=== PATIENT | male | born 1960 | race Hispanic/Latino ===

== ENCOUNTER 2020-05-09 19:58 | Inpatient (IN) | payer SELFPAY ==
[2020-05-09] MEDS ORDERED: Promethazine HCl 25 MG/ML VIAL IM PRN (21:31)
[2020-05-09] MEDS ORDERED: Mag-Al 1200 mg/1200 mg/30 ML UDCUP PO PRN (21:31)
[2020-05-09] MEDS ORDERED: Promethazine 25 MG TAB PO PRN (21:31)
[2020-05-09] MEDS ORDERED: Docusate 100 MG CAP PO PRN (21:31)
[2020-05-09] MEDS ORDERED: Labetalol HCl 100 MG/20 ML VIAL SLOW IVP PRN (21:31)
[2020-05-09] MEDS ORDERED: niCARdipine 20MG In NaCl 20 MG/200 ML BAG ONE (21:38)
[2020-05-09] MEDS ORDERED: Dextrose 5% in Water 1,000 ML IV PRN (23:30)
[2020-05-09] MEDS ORDERED: Dextrose 50% Abboject 50 ML SYRINGE SLOW IVP PRN (23:30)
--- NOTE | 2020-05-09 23:46 | PDOC.HHP ---
Hospitalist HPI - History of Present Illness Headache History of Present Illness: Patient is a 60 year old male with PMH DM, HTN, oropharyngeal cancer who presents to ED as transfer from [place] for SAH. Patient reports he developed a headache beginning 9 days ago, getting worse 5 days ago, no history of anything like this before. He had a CT scan for this yesterday and was normal, however went to ED again and now had a CT scan w/ angio suggesting basilar artery SAH w/ vasospasm. Patient given zofran, morphine hydralazine and transferred here for further workup. Patient reports to me good control of HTN and DM after getting it together 4 months ago. He checks BP 3 times a day and is suprised that it is this high. He has DM on PO medication. He has a history of ENT cancer and has history of chronic facial droop and pupil defect after having a surgery, neither of which are changed in anyway. he denies focal weakness, numbness, blurred vision, or other neurologic changes. Hospitalist ROS - Review of Systems Constitutional: reports: other (headache). denies: fever, chills, sweats, weakness, malaise Eyes: denies: pain, vision change, conjunctivae inflammation, eyelid inflammation, redness, other ENT: denies: ear pain, ear discharge, nose pain, nose discharge, nose congestion, mouth pain, mouth swelling, throat pain, throat swelling, other Respiratory: denies: cough, dry, shortness of breath, hemoptysis, SOB with excertion, pleuritic pain, sputum, wheezing, other Cardiovascular: denies: chest pain, palpitations, orthopnea, paroxysmal noc. dyspnea, edema, light headedness, other Gastrointestinal: denies: nausea, vomiting, abdominal pain, diarrhea, constipation, melena, hematochezia, other Genitourinary: denies: dysuria, frequency, incontinence, hematuria, retention, other Musculoskeletal: reports: neck pain. denies: shoulder pain, arm pain, back pain, hand pain, leg pain, foot pain, other Skin: denies: rash, lesions, paul, bruising, other Neurological: reports: other (chronic facial droop, pupil defect unchanged). denies: weakness, numbness, incoordination, change in speech, confusion, seizures All other systems reviewed; all pertinent +/- noted in HPI/Subj - Medication Medications: lisinopril tablet : Strength - 10 mg : ORAL Patient Dose: 20-12.5 mg Oral once a day. aspirin oral tablet : Strength - 81 mg : ORAL Patient Dose: 81 mg Oral once a day. metFORMIN tablet : Strength - 500 mg : ORAL Patient Dose: 500 mg Oral 2 times a day. Hospitalist History - Past Medical History Other Medical History: DM, HTN, oropharyngeal cancer - Past Surgical History Other Surgical History: tongue surgery due to cancer. radiation to throat and face 2013. - Family History Family History: reports: no pertinent history - Social History Smoking Status: Never smoker Alcohol: reports: Heavy (less than 5 drinks per day) Drugs: reports: none - Exam General Appearance: NAD, awake alert Eye: PERRL, anicteric sclera ENT: normocephalic atraumatic, no oropharyngeal lesions, moist mucosa ENT - other findings: chronic facial droop, pupic defect L side Neck: supple, symmetric, no JVD, no thyromegaly, no lymphadenopathy, no carotid bruit Heart: RRR, no murmur, no gallops, no rubs, normal peripheral pulses Respiratory: CTAB, no wheezes, no rales, no ronchi, normal chest expansion, no tachypnea, normal percussion Gastrointestinal: soft, non-tender, non-distended, normal bowel sounds, no palpable masses, no hepatomegaly, no splenomegaly, no bruit Extremities: no cyanosis, no clubbing, no edema Skin: normal turgor, no lesions, no rashes Neurological: cranial nerve grossly intact, normal sensation to touch, no weakness, no focal deficits, no new deficit Musculoskeletal: normal tone, normal strength, no muscle wasting Psychiatric: normal affect, normal behavior, A&O x 3 Hospitalist Results - Labs Additional comment: VITAL SIGNS Deborah May 09, 2020 20:07 KARIN Gramajo Melanie BP: 168/92 Pulse: 74 Resp: 13 Temp: 97.9 (Oral) Pain: 7 O2 sat: 99 on (Room Air) Time: 05/09/2020 20:07. labs,imaing reports from other hospitalization today reviewed Hospitalist H&P A/P - Plan Plan: Patient is a 60 year old male with PMH DM, HTN, oropharyngeal cancer who presents to ED as transfer from [place] for SAH. # basilar artery subarachnoid hemorrhage with vasospasm # headache # HTN headache x 9 days, worsening, CT scan w/ angio suggesting SAH w/ vasospasm in basilar artery, Patient given zofran, morphine hydralazine and transferred here for further workup. no change in neurologic status - admit to CCU - appreciate neurosurgery evaluation - continue HTN medications as ordered by vamsi OR # DM - SSI ordered # history of ENT cancer # chronic facial droop and pupil defect after surgery - no changes in neurologic status from baseline - recommend outpatient cancer surveillance 42 minutes critical care time
[2020-05-10] MEDS ORDERED: Dexamethasone 4 MG TAB ONE ×2 (00:08→04:33)
[2020-05-10] MEDS ORDERED: Insulin Regular 300 UNITS/3 ML VIAL ONE (00:17)
[2020-05-10] MEDS: HumaLOG 300 UNITS/3 ML VIAL SC PRN ×4 (00:27→21:33)
[2020-05-10] MEDS: niMODipine 30 MG CAP PO SCH ×6 (00:29→21:32)
[2020-05-10] MEDS: Dexamethasone 4 MG TAB PO SCH ×2 (00:29→05:07)
[2020-05-10] MEDS: Sodium Chloride 0.9% 1,000 ML IV SCH ×2 (00:29→13:50)
[2020-05-10] MEDS ORDERED: Promethazine 25 MG TAB ONE (00:53)
[2020-05-10] MEDS ORDERED: niCARdipine 25 MG in Sodium Chloride 0.9% 250 ML 240 ML IVPB SCH (01:00)
[2020-05-10 05:52] LABS: SARS-CoV-2 PCR by NAA Not Detected (NotDetected)
[2020-05-10 07:01] LABS: #Lymphocytes 0.8 thou/uL (1.20-3.40); #Monocytes 0.1 thou/uL (0.11-0.59); #Neutrophils 7.3 thou/uL (1.40-6.50); %Lymphocytes 9.4 % (21.0-51.0); %Monocytes 1.5 % (0.0-10.0); Hemoglobin 15.8 g/dL (14.0-18.0); Mean Corpuscular HGB CONC 31.8 g/dL (32.0-36.0); Mean Corpuscular Hemoglobin 30.1 pg (27.0-31.0); Mean Corpuscular Volume 94.5 fL (78.0-98.0); Mean Platelet Volume 7.2 fL (7.4-10.4); Platelet Count 427 thou/uL (130-400); RBC Distribution Width 11.5 % (11.5-14.5); Red Blood Cell (RBC) Count 5.26 mill/uL (4.70-6.10); White Blood Cell (WBC) Count 8.2 thou/uL (4.8-10.8)
[2020-05-10 07:16] LABS: Anion Gap 16 mmol/L (10-20); BUN (Urea Nitrogen) 13 mg/dL (8.4-25.7); Calc. Creatinine Clearance 126 mL/min (70-130); Calcium 8.8 mg/dL (7.8-10.44); Carbon Dioxide 21 mmol/L (23-31); Chloride 100 mmol/L (98-107); Glucose 208 mg/dL (80-115); Potassium 4.3 mmol/L (3.5-5.1); Sodium 133 mmol/L (136-145)
--- NOTE | 2020-05-10 07:31 | PRG ---
DATE OF SERVICE: 05/10/2020 I personally interviewed and examined the patient, agree with documentation of Richard Warren PA-C, dated 05/09/2020. Briefly, Elieser Harris is a 60-year-old gentleman with a family history of aneurysmal subarachnoid hemorrhage, who got the first headache of his life about 9 days ago. He was managing his garden at that time and trimming some of the leaves of lettuce when he had acute onset headache. He has never experience headaches, so he does not know if this is a terrible one or just par for the course. For that reason, he did not seek medical attention for few days, but eventually was seen in the emergency department and told the CT scan of the brain was negative and he was sent home with some pain medication. Continued headache brought back and at the [facility] Emergency Department, he underwent a CT angiogram that showed some clot around the tip of the basilar artery and some vasospasm in the superior cerebellar arteries on both sides. He was transferred for further care. He has been in our ER in a holding bed since his transfer overnight. This morning, he continues to have headache, but he had no other neurological complaints. He tells me that his slurred speech and facial weakness are from a cancer surgery on his tongue and mouth that lower branch of the facial nerve was injured during that removal of tumor. He reports no other new neurological deficits. There are no fevers recorded. Blood pressures are in the 130s as I see him. His pulse is in the 50s. He is awake and alert. He has lower facial weakness on the left side and buccal and mandibular divisions of the facial nerve. There are no other cranial neuropathies. There is no lateralizing motor or sensory deficit. There is no pronator drift. There is no neglect. Alternating rapid motions are performed rapidly and smoothly on both sides of the body. CT angiogram of the brain shows the aforementioned abnormality. What it does not show is any obvious aneurysm, dissection, or AVM. The vasospasm maybe obscuring view of a small aneurysm. Two CT angiograms have failed to reveal obvious source of the blood, but the effect of the blood is the vasospasm. My plan is to move Mr. Harris to the ICU, start 1.5 normal saline and watch him closely. If his vasospasm remains asymptomatic and we get through the next few days without any neurological decline, he maybe ready for discharge at some point next week. He is going to need a followup angiogram of some sort in the future once the vasospasm goes away to determine if there is a risk for future subarachnoid hemorrhage. He would be a patient who would benefit from treatment if we find an aneurysm given his family and personal history. I have ordered labs this morning. I will make changes to the IV fluids. Job ID: [id number]
--- NOTE | 2020-05-10 08:00 | CT ---
CT OF THE BRAIN WITH AND WITHOUT IV CONTRAST: INDICATION: History of subarachnoid hemorrhage surrounding the basilar artery. COMPARISON: Prior CTA of the head and neck dated 05/09/[address] of the brain dated 05/08/2020 and 09/21/2017. FINDINGS: The collection of subarachnoid hemorrhage surrounding the basilar artery within the prepontine cister n appears less prominent than on the comparison noncontrast CT of the brain dated 05/08/2020, likely r elated to interval dispersal of the subarachnoid hemorrhage. No hemodynamically significant stenosis , occlusion, or aneurysmal formation is grossly evident. The small area of focal narrowing involving the more proximal basilar artery near the level of the subarachnoid hemorrhage appears slightly less prominent than on the prior examination, likely related to some resolution of a focal vasospasm. Th e intracranial vertebral arteries and ICAs remain patent. The MCAs and bilateral ACAs remain patent. The posterior communicating arteries are not well detailed but appear patent. The radiology director bilaterally appear patent. No definite acute infarct or hydrocephalus is present. No midline shift is noted. No definite area of abnormal enhancement is demonstrated. The mastoid air cells and paranasal sinuses are clear. The skull is intact. IMPRESSION: Some interval disbursal of the subarachnoid hemorrhage seen within the prepontine cistern adjacent to the more proximal basilar artery. A focal area of suspected vasospasm has somewhat improved from th e prior examination. There is less accentuated luminal caliber narrowing involving the more proximal basilar artery near the level of the subarachnoid hemorrhage. No evidence of aneurysmal dilatation or focal dissection is grossly evident. POS: ELISE
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
[2020-05-10] MEDS ORDERED: Pantoprazole 40 MG VIAL ONE (09:33)
[2020-05-10] MEDS: Pantoprazole 40 MG VIAL IVP SCH ×2 (09:35→21:32)
[2020-05-10] MEDS ORDERED: FLU VACC QS2020-21(6MOS UP)/PF 60 MCG/0.5 ML SYRINGE IM ONE (12:15)
[2020-05-10] MEDS ORDERED: Iopamidol-370 76% 500 ML 1 ML ONE (14:27)
[2020-05-10] MEDS ORDERED: HumaLOG 300 UNITS/3 ML VIAL SC PRN (16:39)
--- NOTE | 2020-05-10 16:42 | PDOC.HOSPP ---
- Subjective Encounter Date: 05/10/20 Encounter Time: 11:35 Subjective: headache has resolved now no c/o specific weakness, feels better ate his breakfast, no nausea or vomiting - Objective Vital Signs & Weight: Vital Signs (12 hours) Temp Pulse Resp BP Pulse Ox 05/10/20 10:00 98.5 F 60 17 128/67 99 05/10/20 09:00 98.7 F 62 19 121/71 100 05/10/20 08:00 98.1 F 83 19 160/81 H 97 05/10/20 06:02 57 L 16 137/72 98 05/10/20 05:31 56 L 16 132/67 98 Weight Weight 252 lb 6.868 oz Result Diagrams: 05/10/20 06:46 05/10/20 06:46 Additional Labs: Accuchecks 05/10/20 05/10/20 05/09/20 11:45 05:34 23:53 POC Glucose 202 H 238 H 291 H Hospitalist ROS - Medication Medications: Active Medications Generic Name Dose Route Start Last Admin Trade Name Bebetoq PRN Reason Stop Dose Admin Sodium Chloride 1,000 mls @ 70 mls/hr 05/09/20 21:45 05/10/20 13:50 Normal Saline 0.9% IV 1,000 mls .[id number] NAVARRO Administration Insulin Human Lispro 0 units 05/09/20 23:30 05/10/20 12:00 Humalog 300 Units/3 Ml Vial SC 3 units .MILD SLIDING SCALE PRN Administration Mild Correctional Scale Nimodipine 60 mg 05/10/20 01:00 05/10/20 13:41 Nimodipine 30 Mg Cap PO 60 mg Q4HR NAVARRO Administration Pantoprazole Sodium 40 mg 05/10/20 09:00 05/10/20 09:35 Pantoprazole 40 Mg Vial IVP 40 mg Q12HR NAVARRO Administration Promethazine HCl 25 mg 05/09/20 21:31 05/10/20 01:20 Promethazine 25 Mg Tab PO 25 mg Q4H PRN Administration Nausea/Vomiting - Exam General Appearance: awake alert Eye: PERRL, anicteric sclera ENT: no oropharyngeal lesions, moist mucosa Neck: supple, no JVD Heart: RRR, no murmur Respiratory: no wheezes, no rales Gastrointestinal: soft, non-tender, non-distended, normal bowel sounds Extremities: no cyanosis, no edema Neurological: no new deficit, facial droop, speech deficit Musculoskeletal: normal tone, no muscle wasting Psychiatric: normal affect, A&O x 3 Hosp A/P (1) basilar artery vasospasm Status: Suspected (2) Subarachnoid hemorrhage Code(s): I60.9 - NONTRAUMATIC SUBARACHNOID HEMORRHAGE, UNSPECIFIED Status: Acute (3) Headache Code(s): R51.9 - HEADACHE, UNSPECIFIED Status: Resolved Qualifiers: Headache chronicity pattern: acute headache Intractability: intractable (4) HTN (hypertension) Code(s): I10 - ESSENTIAL (PRIMARY) HYPERTENSION Status: Chronic Qualifiers: Hypertension type: essential hypertension Qualified Code(s): I10 - Essential (primary) hypertension (5) DM type 2 (diabetes mellitus, type 2) Status: Chronic Qualifiers: Diabetes mellitus alf insulin use: without salvage determiner use (6) Obesity Code(s): E66.9 - OBESITY, UNSPECIFIED Status: Chronic Qualifiers: Body mass index: BMI 40.0-44.9 (7) H/O tongue cancer Status: Chronic - Plan is on nimodipine 60mg po q4h, protonix bid, lantus 10 bid with coverage hemo/neurostable brain imaging study results noted to be closely monitored in icu in view of suspected basilar art vasospasm plus hematoma around it per nsx to have imaging studies prior to dc to r/o aneursym will add antihtn meds if needed, current sbp around 130. h/o tongue diagnosed around 2013 with surgery, left facial nr injury, prior radiation. to mobilize in room as tolerated with assistance
[2020-05-10] MEDS ORDERED: Acetaminophen 325 MG TAB ONE (19:03)
[2020-05-10] MEDS: Acetaminophen 325 MG TAB PO PRN ×2 (19:05→23:04)
[2020-05-10] MEDS: Insulin Glargine 10 UNITS in Pre-Filled Syringe 1 EACH SC SCH (21:31)
[2020-05-10] MEDS: STERILE WATER IV SCH (23:05)
[2020-05-10] MEDS: SODIUM CHLORIDE IV SCH (23:05)
[2020-05-11] MEDS: niMODipine 30 MG CAP PO SCH ×6 (00:53→21:18)
[2020-05-11] MEDS: diphenhydrAMINE 50 MG CAP PO PRN ×2 (00:55→19:25)
[2020-05-11] MEDS: Acetaminophen 325 MG TAB PO PRN ×2 (04:43→09:11)
[2020-05-11] MEDS: Morphine 2 MG/ML VIAL SLOW IVP PRN ×2 (06:38→23:37)
[2020-05-11] MEDS: Pantoprazole 40 MG VIAL IVP SCH ×2 (09:15→21:18)
[2020-05-11] MEDS: Insulin Glargine 10 UNITS in Pre-Filled Syringe 1 EACH SC SCH ×2 (10:12→21:17)
[2020-05-11] MEDS: STERILE WATER IV SCH ×2 (10:13→19:27)
[2020-05-11] MEDS: SODIUM CHLORIDE IV SCH ×2 (10:13→19:27)
[2020-05-11 10:14] LABS: Anion Gap 14 mmol/L (10-20); BUN (Urea Nitrogen) 16 mg/dL (8.4-25.7); Calc. Creatinine Clearance 125 mL/min (70-130); Calcium 8.1 mg/dL (7.8-10.44); Carbon Dioxide 20 mmol/L (23-31); Chloride 106 mmol/L (98-107); Glucose 124 mg/dL (80-115); Potassium 3.8 mmol/L (3.5-5.1); Sodium 136 mmol/L (136-145)
--- NOTE | 2020-05-11 10:31 | PDOC.HOSPP ---
- Subjective Encounter Date: 05/11/20 Encounter Time: 10:29 Subjective: Mr. Harris was seen today in follow-up of Subarachnoid hemorrhage, and HTN. He does not have any complaints this morning. He denies headache, but notes feeling a little dizzy, but he attributes this to his blood pressure being a little lower than what he is used to. No other complaints, such as chest pain or difficulty breathing. - Objective Vital Signs & Weight: Vital Signs (12 hours) Temp 05/11/20 08:00 97.7 F 05/11/20 04:00 98.6 F 05/11/20 00:00 98.2 F Weight Weight 231 lb 7.766 oz Most Recent Monitor Data Heart Rate from ECG 53 NIBP 117/56 NIBP BP-Mean 76 Respiration from ECG 12 SpO2 98 I&O: 05/10/20 05/11/20 05/12/20 06:59 06:59 06:59 Intake Total 2700 250 Output Total 2575 Balance 125 250 Result Diagrams: 05/10/20 06:46 05/11/20 09:45 Additional Labs: Accuchecks 05/11/20 05/10/20 05/10/20 06:01 21:33 17:38 POC Glucose 97 178 H 179 H 05/10/20 11:45 POC Glucose 202 H Hospitalist ROS - Medication Medications: Active Medications Generic Name Dose Route Start Last Admin Trade Name Freq PRN Reason Stop Dose Admin Diphenhydramine HCl 50 mg 05/09/20 21:31 05/11/20 00:55 Diphenhydramine 50 Mg Cap PO 50 mg Q6H PRN Administration Itching or Insomnia Insulin Glargine 10 units/ 0.1 mls @ 0 mls/hr 05/10/20 21:00 05/11/20 10:12 Miscellaneous Medication SC 0.1 mls BID NAVARRO Administration Sodium Chloride 256.4 meq/ 1,064.1 mls @ 90 mls/hr 05/10/20 22:45 05/11/20 10:13 Sterile Water IV 1,064.1 mls .[id number] NAVARRO Administration Insulin Human Lispro 0 units 05/10/20 16:39 05/10/20 21:33 Humalog 300 Units/3 Ml Vial SC 2 unit .MODERATE SLIDING SC PRN Administration Moderate Correctional Scale Morphine Sulfate 1 mg 05/11/20 06:35 05/11/20 06:38 Morphine 2 Mg/Ml Vial SLOW IVP 1 mg Q2H PRN Administration Moderate to Severe Pain (6-10) Nimodipine 60 mg 05/10/20 01:00 05/11/20 09:11 Nimodipine 30 Mg Cap PO 60 mg Q4HR NAVARRO Administration Pantoprazole Sodium 40 mg 05/10/20 09:00 05/11/20 09:15 Pantoprazole 40 Mg Vial IVP 40 mg Q12HR NAVARRO Administration Promethazine HCl 25 mg 05/09/20 21:31 05/10/20 01:20 Promethazine 25 Mg Tab PO 25 mg Q4H PRN Administration Nausea/Vomiting - Exam Eye: PERRL, anicteric sclera ENT: normocephalic atraumatic, no oropharyngeal lesions Heart: RRR, no murmur, no gallops, no rubs, normal peripheral pulses Respiratory: CTAB, no wheezes, no rales, no ronchi, normal chest expansion, no tachypnea, normal percussion Gastrointestinal: soft, non-tender, non-distended, normal bowel sounds, no palpable masses, no hepatomegaly Extremities: no cyanosis, no edema Musculoskeletal: normal tone, normal strength (muscle strength is 5/5 in both upper and lower extremities, reflexes are symmetric), no muscle wasting Psychiatric: normal affect, normal behavior, A&O x 3 Hosp A/P (1) Subarachnoid hemorrhage Code(s): I60.9 - NONTRAUMATIC SUBARACHNOID HEMORRHAGE, UNSPECIFIED Status: Acute (2) DM type 2 (diabetes mellitus, type 2) Status: Chronic Qualifiers: Diabetes mellitus medical administrative insulin use: without [facility] use (3) H/O tongue cancer Status: Chronic (4) HTN (hypertension) Code(s): I10 - ESSENTIAL (PRIMARY) HYPERTENSION Status: Chronic Qualifiers: Hypertension type: essential hypertension Qualified Code(s): I10 - Essential (primary) hypertension (5) Obesity Code(s): E66.9 - OBESITY, UNSPECIFIED Status: Chronic Qualifiers: Body mass index: BMI 40.0-44.9 (6) basilar artery vasospasm Status: Suspected - Plan * Subarachnoid Hemorrhage- continue strict blood pressure control. He is currently on Nimodipine * He may need re-imaging at a later date to assess for cerebral aneurysm * HTN- continue Nimodipine, and will re-start Lisinopril. Will hold the HCTZ, due to recent ICH * DM- continue SSI- will continue to hold Metformin for now * No lovennox or heparin due to ICH
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
--- NOTE | 2020-05-11 10:51 | PRG ---
DATE OF SERVICE: Mr. Harris is here on the third day of his admission for vasospasm and what appears to be perimesencephalic nonaneurysmal subarachnoid hemorrhage. He complains of moderate headache and some eye pain, however, is completely neurologically intact and overall looks to be doing quite well. We are running 1.5 saline through the IV, but did not draw morning labs. It appears we will order this now and check a sodium to titrate his therapy going forward. No additional imaging is required at this time or interventions for that matter. We will continue to follow his exam over the course of the next several days. Job ID: [id number]
[2020-05-11] MEDS: Acetaminophen 500 MG TAB PO PRN ×2 (13:38→19:25)
[2020-05-11] MEDS ORDERED: Lisinopril 10 MG TAB PO SCH (14:45)
[2020-05-11] MEDS: HumaLOG 300 UNITS/3 ML VIAL SC PRN (16:10)
[2020-05-11 18:47] LABS: Anion Gap 14 mmol/L (10-20); BUN (Urea Nitrogen) 19 mg/dL (8.4-25.7); Calc. Creatinine Clearance 109 mL/min (70-130); Calcium 8.3 mg/dL (7.8-10.44); Carbon Dioxide 23 mmol/L (23-31); Chloride 104 mmol/L (98-107); Glucose 153 mg/dL (80-115); Potassium 3.9 mmol/L (3.5-5.1); Sodium 137 mmol/L (136-145)
[2020-05-12] MEDS: niMODipine 30 MG CAP PO SCH ×6 (01:47→21:32)
[2020-05-12] MEDS: Morphine 2 MG/ML VIAL SLOW IVP PRN ×2 (01:52→09:07)
[2020-05-12] MEDS: diphenhydrAMINE 50 MG CAP PO PRN ×4 (02:34→21:33)
[2020-05-12] MEDS: Acetaminophen 500 MG TAB PO PRN ×4 (02:35→21:33)
--- NOTE | 2020-05-12 06:36 | PRG ---
DATE OF SERVICE: 05/12/2020 SUBJECTIVE: Mr. Harris is on the 4th day of his hospital stay. Exam continues to be stable. He continues to report diffuse headache. This required 2 doses of morphine overnight, but otherwise has continued to be mostly well controlled. We are awaiting on the morning sodium to decide on further titration or use of the 0.5 saline solution. This should be drawn in the next hour or so. We will follow up after that. Job ID: [id number]
[2020-05-12 07:26] LABS: #Eosinphils 0.1 thou/uL (0.0-0.7); #Lymphocytes 1.3 thou/uL (1.20-3.40); #Monocytes 0.5 thou/uL (0.11-0.59); #Neutrophils 5.9 thou/uL (1.40-6.50); %Basophils 0.2 % (0.0-1.0); %Eosinophils 1.9 % (0.0-10.0); %Lymphocytes 16.2 % (21.0-51.0); %Monocytes 6.4 % (0.0-10.0); %Neutrophils 75.3 % (42.0-75.0); Hemoglobin 14.9 g/dL (14.0-18.0); Mean Corpuscular HGB CONC 34.1 g/dL (32.0-36.0); Mean Corpuscular Hemoglobin 32.5 pg (27.0-31.0); Mean Corpuscular Volume 95.3 fL (78.0-98.0); Mean Platelet Volume 6.8 fL (7.4-10.4); Platelet Count 374 thou/uL (130-400); RBC Distribution Width 11.5 % (11.5-14.5); White Blood Cell (WBC) Count 7.9 thou/uL (4.8-10.8)
[2020-05-12 07:44] LABS: Anion Gap 13 mmol/L (10-20); BUN (Urea Nitrogen) 14 mg/dL (8.4-25.7); Calc. Creatinine Clearance 143 mL/min (70-130); Calcium 7.9 mg/dL (7.8-10.44); Carbon Dioxide 22 mmol/L (23-31); Chloride 106 mmol/L (98-107); Glucose 98 mg/dL (80-115); Potassium 3.6 mmol/L (3.5-5.1); Sodium 137 mmol/L (136-145)
[2020-05-12] MEDS: Lisinopril 10 MG TAB PO SCH (08:24)
[2020-05-12] MEDS: Insulin Glargine 10 UNITS in Pre-Filled Syringe 1 EACH SC SCH ×2 (08:24→21:32)
[2020-05-12] MEDS: Pantoprazole 40 MG VIAL IVP SCH ×2 (08:25→21:32)
[2020-05-12] MEDS: SODIUM CHLORIDE IV SCH ×2 (08:59→19:06)
[2020-05-12] MEDS: STERILE WATER IV SCH ×2 (08:59→19:06)
--- NOTE | 2020-05-12 09:00 | PRG ---
DATE OF SERVICE: 05/12/2020 I reviewed the notes as well as the assessment and plan as dictated by Benjamin Abreu and agree with his overall assessment. Mr. Harris has been stable over the course of the weekend. He presents with non aneurysmal subarachnoid hemorrhage. His sodium is slowly improving toward normalization with hypertonic saline. We await another draw this morning. Neurologically, he has been stable without any concerns at this time for symptomatic . Job ID: [id number]
--- NOTE | 2020-05-12 10:47 | PDOC.HOSPP ---
- Subjective Encounter Date: 05/12/20 Encounter Time: 10:45 Subjective: Mr. Harris was seen today in follow-up of subachnoid hemorrhage. He complains of a persistent headache, which he rate about a 5/10. He felt like it got a little worse last night, with constant throbbing. He has not had any new Neurological deficits. - Objective Vital Signs & Weight: Vital Signs (12 hours) Temp Pulse Ox 05/12/20 08:00 97 05/12/20 04:00 98 F 05/12/20 00:00 98.0 F Weight Weight 234 lb 12.677 oz Most Recent Monitor Data Heart Rate from ECG 55 NIBP 118/71 NIBP BP-Mean 86 Respiration from ECG 17 SpO2 97 I&O: 05/11/20 05/12/20 05/13/20 06:59 06:59 06:59 Intake Total 2700 3374 Output Total 2575 2400 550 Balance 125 974 -550 Result Diagrams: 05/12/20 07:18 05/12/20 07:18 Additional Labs: Accuchecks 05/12/20 05/11/20 05:56 21:16 POC Glucose 108 H 122 H Hospitalist ROS - Medication Medications: Active Medications Generic Name Dose Route Start Last Admin Trade Name Freq PRN Reason Stop Dose Admin Acetaminophen 1,000 mg 05/11/20 09:11 05/12/20 08:44 Acetaminophen 500 Mg Tab PO 1,000 mg Q6H PRN Administration Headache/Fever or Pain Diphenhydramine HCl 50 mg 05/09/20 21:31 05/12/20 08:44 Diphenhydramine 50 Mg Cap PO 50 mg Q6H PRN Administration Itching or Insomnia Insulin Glargine 10 units/ 0.1 mls @ 0 mls/hr 05/10/20 21:00 05/12/20 08:24 Miscellaneous Medication SC 0.1 mls BID NAVARRO Administration Sodium Chloride 256.4 meq/ 1,064.1 mls @ 90 mls/hr 05/10/20 22:45 05/12/20 08:59 Sterile Water IV 1,064.1 mls .[id number] NAAVRRO Administration Insulin Human Lispro 0 units 05/10/20 16:39 05/11/20 16:10 Humalog 300 Units/3 Ml Vial SC 4 unit .MODERATE SLIDING SC PRN Administration Moderate Correctional Scale Lisinopril 20 mg 05/12/20 09:00 05/12/20 08:24 Lisinopril 10 Mg Tab PO 20 mg DAILY NAVARRO Administration Morphine Sulfate 1 mg 05/11/20 06:35 05/12/20 09:07 Morphine 2 Mg/Ml Vial SLOW IVP 1 mg Q2H PRN Administration Moderate to Severe Pain (6-10) Nimodipine 60 mg 05/10/20 01:00 05/12/20 08:25 Nimodipine 30 Mg Cap PO 60 mg Q4HR NAVARRO Administration Pantoprazole Sodium 40 mg 05/10/20 09:00 05/12/20 08:25 Pantoprazole 40 Mg Vial IVP 40 mg Q12HR NAVARRO Administration Promethazine HCl 25 mg 05/09/20 21:31 05/10/20 01:20 Promethazine 25 Mg Tab PO 25 mg Q4H PRN Administration Nausea/Vomiting - Exam Eye: PERRL, anicteric sclera ENT: normocephalic atraumatic Heart: RRR, no murmur, no gallops, no rubs, normal peripheral pulses Respiratory: CTAB, no wheezes, no rales, no ronchi, normal chest expansion, no t achypnea, normal percussion Gastrointestinal: soft, non-tender, non-distended, normal bowel sounds, no palpable masses, no hepatomegaly, no splenomegaly Extremities: no cyanosis, no clubbing, no edema Musculoskeletal: normal tone, normal strength Psychiatric: normal affect, normal behavior, A&O x 3 Hosp A/P (1) Subarachnoid hemorrhage Code(s): I60.9 - NONTRAUMATIC SUBARACHNOID HEMORRHAGE, UNSPECIFIED Status: Acute (2) DM type 2 (diabetes mellitus, type 2) Status: Chronic Qualifiers: Diabetes mellitus skilled nursing insulin use: without ballistic expert use (3) H/O tongue cancer Status: Chronic (4) HTN (hypertension) Code(s): I10 - ESSENTIAL (PRIMARY) HYPERTENSION Status: Chronic Qualifiers: Hypertension type: essential hypertension Qualified Code(s): I10 - Essential (primary) hypertension (5) Obesity Code(s): E66.9 - OBESITY, UNSPECIFIED Status: Chronic Qualifiers: Body mass index: BMI 40.0-44.9 (6) basilar artery vasospasm Status: Suspected - Plan * Subarachnoid Hemorrhage- continue strict blood pressure control. He is currently on Nimodipine * Re-imaging at the discretion of Neurosurgery * HTN- within good range continue Nimodipine, and Lisinopril has been started * DM- continue SSI- will continue to hold Metformin for now * No lovennox or heparin due to ICH * Symptom amangement
[2020-05-12] MEDS: HumaLOG 300 UNITS/3 ML VIAL SC PRN (17:39)
[2020-05-12] MEDS ORDERED: Acetaminophen 500 MG TAB ONE ×2 (21:25)
[2020-05-12] MEDS ORDERED: diphenhydrAMINE 25 MG CAP ONE ×2 (21:26)
[2020-05-12] MEDS ORDERED: Morphine 2 MG/ML VIAL ONE (21:45)
[2020-05-13] MEDS: niMODipine 30 MG CAP PO SCH ×6 (01:05→21:15)
[2020-05-13] MEDS ORDERED: Morphine 2 MG/ML VIAL ONE ×3 (02:32→23:10)
[2020-05-13] MEDS: Morphine 2 MG/ML VIAL SLOW IVP PRN ×4 (02:40→23:13)
[2020-05-13] MEDS ORDERED: Acetaminophen 500 MG TAB ONE ×3 (05:12→23:10)
[2020-05-13] MEDS: Acetaminophen 500 MG TAB PO PRN ×3 (05:14→23:11)
--- NOTE | 2020-05-13 07:22 | PRG ---
DATE OF SERVICE: I saw Mr. Harris in the PACU (there are no hospital beds available) this morning. Headache is improving. He has not been out of bed over the weekend, which is concerning. He felt a bit cold, but got a warm air blower delivered and now he feels much more comfortable. Among the electronically recorded vital signs, there have been no fevers overnight. Heart rates have been in the 50s to 60s and blood pressures in the 140s to 150s. Mr. Harris is wide awake. He is alert. He answered questions appropriately. His cranial nerves are working. There is no lateralizing motor or sensory deficit. There is no pronator drift. There is no neglect. Sodium has not been reported this morning. Yesterday it was 137. On admission it was 133. Mr. Harris is subarachnoid hemorrhage day 13. No aneurysm was seen on [address] angiograms. He will need a conventional angiogram at some point. I am not planning that currently. Mr. Harris needs to move around. He needs to get out of bed and walk. We will assess his safety for activities of daily living. After this morning's sodium is reported we may decide to go down to 45 mL an hour of 1.5 normal saline and recheck his sodium tomorrow. If he keeps his sodium up and has no evidence of symptomatic vasospasm then by Wednesday or he can be discharged on nimodipine for the remainder of 21 days after his hemorrhage. This should run at least through next Wednesday. During the same amount of time, he needs extra salt in his diet, so I changed his heart healthy low-sodium diet to regular diet with some additional salt if he wants it. Job ID: [id number] [facility]
[2020-05-13 07:31] LABS: Anion Gap 11 mmol/L (10-20); BUN (Urea Nitrogen) 13 mg/dL (8.4-25.7); Calc. Creatinine Clearance 143 mL/min (70-130); Carbon Dioxide 24 mmol/L (23-31); Chloride 104 mmol/L (98-107); Glucose 96 mg/dL (80-115); Potassium 3.4 mmol/L (3.5-5.1); Sodium 136 mmol/L (136-145)
[2020-05-13] MEDS ORDERED: Sodium Chloride 0.9% 10 ML ONE (08:17)
[2020-05-13] MEDS: Pantoprazole 40 MG VIAL IVP SCH (08:22)
[2020-05-13] MEDS: Lisinopril 10 MG TAB PO SCH (08:24)
[2020-05-13] MEDS: STERILE WATER IV SCH ×2 (09:01→21:14)
[2020-05-13] MEDS: SODIUM CHLORIDE IV SCH ×2 (09:01→21:14)
[2020-05-13] MEDS: Insulin Glargine 10 UNITS in Pre-Filled Syringe 1 EACH SC SCH ×2 (09:44→21:17)
--- NOTE | 2020-05-13 10:38 | PDOC.HOSPP ---
- Subjective Encounter Date: 05/13/20 Encounter Time: 10:36 Subjective: Mr. Harris was seen today in follow-up of subarachnoid hemorrhage. He notes continued headache, but it has improved to a 3/10. He denies nausea or vomiting. - Objective Vital Signs & Weight: Vital Signs (12 hours) Temp 05/13/20 10:00 97.2 F L 05/13/20 09:00 97.5 F L Weight Weight 234 lb 12.677 oz Most Recent Monitor Data Heart Rate from ECG 60 NIBP 137/75 NIBP BP-Mean 73 Respiration from ECG 18 SpO2 96 I&O: 05/12/20 05/13/20 05/14/20 06:59 06:59 06:59 Intake Total 3374 2530 909 Output Total 2400 7999 1458 Balance 974 -2275 -541 Result Diagrams: 05/12/20 07:18 05/13/20 06:58 Additional Labs: Accuchecks 05/13/20 05/12/20 05/12/20 06:13 21:22 16:28 POC Glucose 91 121 H 172 H 05/12/20 05/11/20 05/11/20 12:00 16:08 11:44 POC Glucose 147 H 204 H 147 H 05/10/20 07:52 POC Glucose 231 H Hospitalist ROS - Medication Medications: Active Medications Generic Name Dose Route Start Last Admin Trade Name Freq PRN Reason Stop Dose Admin Acetaminophen 1,000 mg 05/11/20 09:11 05/13/20 05:14 Acetaminophen 500 Mg Tab PO 1,000 mg Q6H PRN Administration Headache/Fever or Pain Diphenhydramine HCl 50 mg 05/09/20 21:31 05/12/20 21:33 Diphenhydramine 50 Mg Cap PO 50 mg Q6H PRN Administration Itching or Insomnia Insulin Glargine 10 units/ 0.1 mls @ 0 mls/hr 05/10/20 21:00 05/13/20 09:44 Miscellaneous Medication SC 0.1 mls BID NAVARRO Administration Sodium Chloride 256.4 meq/ 1,064.1 mls @ 90 mls/hr 05/10/20 22:45 05/13/20 09:01 Sterile Water IV 1,064.1 mls .[id number] NAVARRO Administration Insulin Human Lispro 0 units 05/10/20 16:39 05/12/20 17:39 Humalog 300 Units/3 Ml Vial SC 2 unit .MODERATE SLIDING SC PRN Administration Moderate Correctional Scale Lisinopril 20 mg 05/12/20 09:00 05/13/20 08:24 Lisinopril 10 Mg Tab PO 20 mg DAILY NAVARRO Administration Morphine Sulfate 1 mg 05/11/20 06:35 05/13/20 08:12 Morphine 2 Mg/Ml Vial SLOW IVP 1 mg Q2H PRN Administration Moderate to Severe Pain (6-10) Nimodipine 60 mg 05/10/20 01:00 05/13/20 08:25 Nimodipine 30 Mg Cap PO 60 mg Q4HR NAVARRO Administration Pantoprazole Sodium 40 mg 05/10/20 09:00 05/13/20 08:22 Pantoprazole 40 Mg Vial IVP 40 mg Q12HR NAVARRO Administration Promethazine HCl 25 mg 05/09/20 21:31 05/10/20 01:20 Promethazine 25 Mg Tab PO 25 mg Q4H PRN Administration Nausea/Vomiting - Exam General Appearance: NAD Eye: PERRL, anicteric sclera ENT: normocephalic atraumatic Heart: RRR, no murmur, no gallops, no rubs, normal peripheral pulses Respiratory: CTAB, no wheezes, no rales, no ronchi, normal chest expansion, no tachypnea Gastrointestinal: soft, non-tender, non-distended, normal bowel sounds, no palpa ble masses, no hepatomegaly Extremities: no cyanosis, no edema Neurological: no new deficit Hosp A/P (1) Subarachnoid hemorrhage Code(s): I60.9 - NONTRAUMATIC SUBARACHNOID HEMORRHAGE, UNSPECIFIED Status: Acute (2) DM type 2 (diabetes mellitus, type 2) Status: Chronic Qualifiers: Diabetes mellitus long line teamster insulin use: without half-way use (3) H/O tongue cancer Status: Chronic (4) HTN (hypertension) Code(s): I10 - ESSENTIAL (PRIMARY) HYPERTENSION Status: Chronic Qualifiers: Hypertension type: essential hypertension Qualified Code(s): I10 - Essential (primary) hypertension (5) Obesity Code(s): E66.9 - OBESITY, UNSPECIFIED Status: Chronic Qualifiers: Body mass index: BMI 40.0-44.9 (6) basilar artery vasospasm Status: Suspected - Plan * Subarachnoid Hemorrhage- continue strict blood pressure control. He is currently on Nimodipine and will need this for a week past discharge * HTN- within good range continue Nimodipine, and Lisinopril has been started * DM- continue SSI- will continue to hold Metformin for now * No lovennox or heparin due to ICH * Symptom management- with Tylenol. No tramadol, due to the seizure potential with this medication. No codeine either * He can be downgraded to stroke if OK with Neurosurgery
[2020-05-13] MEDS: hydrALAZINE 20 MG/ML VIAL SLOW IVP PRN ×2 (16:34→19:40)
[2020-05-13] MEDS: HumaLOG 300 UNITS/3 ML VIAL SC PRN (16:35)
[2020-05-14] MEDS: niMODipine 30 MG CAP PO SCH ×6 (00:38→21:30)
[2020-05-14] MEDS ORDERED: Morphine 2 MG/ML VIAL ONE ×2 (04:41→07:35)
[2020-05-14] MEDS ORDERED: Acetaminophen 500 MG TAB ONE (04:42)
[2020-05-14] MEDS: Acetaminophen 500 MG TAB PO PRN ×2 (04:52→15:08)
[2020-05-14] MEDS: Morphine 2 MG/ML VIAL SLOW IVP PRN ×3 (04:53→15:09)
[2020-05-14 05:54] LABS: Anion Gap 12 mmol/L (10-20); BUN (Urea Nitrogen) 14 mg/dL (8.4-25.7); Calc. Creatinine Clearance 140 mL/min (70-130); Calcium 8.1 mg/dL (7.8-10.44); Carbon Dioxide 25 mmol/L (23-31); Glucose 109 mg/dL (80-115); Potassium 3.5 mmol/L (3.5-5.1)
[2020-05-14 06:04] LABS: Chloride 105 mmol/L (98-107); Sodium 138 mmol/L (136-145)
[2020-05-14] MEDS: Insulin Glargine 10 UNITS in Pre-Filled Syringe 1 EACH SC SCH ×2 (07:39→21:31)
[2020-05-14] MEDS: Lisinopril 10 MG TAB PO SCH (07:40)
--- NOTE | 2020-05-14 08:02 | PDOC.HOSPP ---
- Subjective Encounter Date: 05/14/20 Encounter Time: 08:40 non-verbal Subjective: Mr. Harris was seen this morning in follow up of his subarachnoid hemorrhage. He complains of a headache that is about a 4-5/10. He denies any nausea, shortness or breath and palpitations. He complains of feeling depressed after being in the hospital for so long, and anticipates going home in the next day. - Objective Vital Signs & Weight: Vital Signs (12 hours) Temp Pulse Resp BP BP Pulse Ox 05/14/20 07:40 134/87 05/14/20 07:19 98 05/14/20 04:48 97.3 F L 53 L 20 138/70 97 05/14/20 00:35 97.2 F L 56 L 20 119/68 95 05/13/20 21:10 98.1 F 63 20 126/75 98 Weight Weight 234 lb Most Recent Monitor Data Heart Rate from ECG 63 NIBP 117/62 NIBP BP-Mean 102 Respiration from ECG 18 SpO2 98 I&O: 05/13/20 05/14/20 05/15/20 06:59 06:59 06:59 Intake Total 2530 3364 1876 Output Total 4805 3250 375 Balance -2275 114 1501 Result Diagrams: 05/12/20 07:18 05/14/20 05:21 Additional Labs: Accuchecks 05/14/20 05/13/20 05/11/20 04:58 11:46 16:08 POC Glucose 124 H 112 H 204 H 05/11/20 05/10/20 11:44 07:52 POC Glucose 147 H 231 H Hospitalist ROS - Review of Systems Respiratory: denies: shortness of breath Cardiovascular: denies: chest pain, palpitations Gastrointestinal: denies: nausea - Medication Medications: Active Medications Generic Name Dose Route Start Last Admin Trade Name Freq PRN Reason Stop Dose Admin Acetaminophen 1,000 mg 05/11/20 09:11 05/14/20 04:52 Acetaminophen 500 Mg Tab PO 1,000 mg Q6H PRN Administration Headache/Fever or Pain Diphenhydramine HCl 50 mg 05/09/20 21:31 05/12/20 21:33 Diphenhydramine 50 Mg Cap PO 50 mg Q6H PRN Administration Itching or Insomnia Hydralazine HCl 5 mg 05/09/20 21:31 05/13/20 19:40 Hydralazine 20 Mg/Ml Vial SLOW IVP 5 mg Q15M PRN Administration SBP > 120 Insulin Glargine 10 units/ 0.1 mls @ 0 mls/hr 05/10/20 21:00 05/14/20 07:39 Miscellaneous Medication SC 0.1 mls BID NAVARRO Administration Sodium Chloride 256.4 meq/ 1,064.1 mls @ 45 mls/hr 05/10/20 22:45 05/13/20 21:14 Sterile Water IV 1,064.1 mls .[id number] NAVARRO Administration Insulin Human Lispro 0 units 05/10/20 16:39 05/13/20 16:35 Humalog 300 Units/3 Ml Vial SC 2 unit .MODERATE SLIDING SC PRN Administration Moderate Correctional Scale Lisinopril 20 mg 05/12/20 09:00 05/14/20 07:40 Lisinopril 10 Mg Tab PO 20 mg DAILY NAVARRO Administration Morphine Sulfate 1 mg 05/11/20 06:35 05/14/20 07:44 Morphine 2 Mg/Ml Vial SLOW IVP 1 mg Q2H PRN Administration Moderate to Severe Pain (6-10) Nimodipine 60 mg 05/10/20 01:00 05/14/20 07:41 Nimodipine 30 Mg Cap PO 60 mg Q4HR NAVARRO Administration Pantoprazole Sodium 40 mg 05/13/20 21:00 05/14/20 07:41 Pantoprazole 40 Mg Tab PO 40 mg Q12HR NAVARRO Administration Promethazine HCl 25 mg 05/09/20 21:31 05/10/20 01:20 Promethazine 25 Mg Tab PO 25 mg Q4H PRN Administration Nausea/Vomiting - Exam Heart: RRR Respiratory: no wheezes, no rales, no ronchi, normal chest expansion, no tachypnea Gastrointestinal: soft, non-tender, non-distended, normal bowel sounds, no palpable masses Extremities: no cyanosis, no edema Neurological: cranial nerve grossly intact, facial droop Musculoskeletal: normal tone, normal strength (5/5 in both upper and lower extremities), no muscle wasting Psychiatric: A&O x 3 Hosp A/P (1) Subarachnoid hemorrhage Code(s): I60.9 - NONTRAUMATIC SUBARACHNOID HEMORRHAGE, UNSPECIFIED Status: Acute (2) DM type 2 (diabetes mellitus, type 2) Status: Chronic Qualifiers: Diabetes mellitus mcfp insulin use: without mcfp use (3) H/O tongue cancer Status: Chronic (4) HTN (hypertension) Code(s): I10 - ESSENTIAL (PRIMARY) HYPERTENSION Status: Chronic Qualifiers: Hypertension type: essential hypertension Qualified Code(s): I10 - Essential (primary) hypertension (5) Obesity Code(s): E66.9 - OBESITY, UNSPECIFIED Status: Chronic Qualifiers: Body mass index: BMI 40.0-44.9 (6) basilar artery vasospasm Status: Suspected - Plan * Subarachnoid Hemorrhage- continue strict blood pressure control. He is currently on Nimodipine and will need this for a week past discharge * HTN- within good range continue Nimodipine, and will continue Lisinopril * DM- continue SSI- and can re-start Metformin * No lovennox or heparin due to ICH * Symptom management- with Tylenol * Anticipate home tomorrow
[2020-05-14] MEDS: STERILE WATER IV SCH ×2 (12:20→21:29)
[2020-05-14] MEDS: SODIUM CHLORIDE IV SCH ×2 (12:20→21:29)
--- NOTE | 2020-05-14 13:08 | PRG ---
DATE OF SERVICE: I saw Elieser Harris in the PACU this morning. He did not have any complaints other than he is still in the hospital. I have not seen any fevers recorded among the electronically noted vital signs. Blood pressures have been in the 130s to 150s. Neurological examination is normal. The sodium level this morning was 138. My plan today is to decrease the supplemental sodium down to 45 mL an hour (of 1.5 normal saline). We will check his sodium again tomorrow. It remains in the high 130s, then we will stop the supplemental sodium tomorrow morning. If he keeps his sodium up, he can be discharged from the hospital the next morning. He will need to stay on nimodipine until next Wednesday. He can have supplemental salt in his diet until next Wednesday. Thereafter, he does not need either of those. He will need to follow up in our clinic in 2 to 3 weeks. We will have a visit with Dr. Mccall for conventional angiogram once the blood clears to see if there is any small aneurysm that was missed on the CT angiogram. Job ID: [id number] [facility]
[2020-05-14] MEDS: metFORMIN 500 MG TAB PO SCH (17:45)
[2020-05-15] MEDS: niMODipine 30 MG CAP PO SCH ×6 (00:01→20:22)
[2020-05-15 03:54] VITALS: BMI 37.8
[2020-05-15 05:38] LABS: Anion Gap 11 mmol/L (10-20); BUN (Urea Nitrogen) 10 mg/dL (8.4-25.7); Calc. Creatinine Clearance 151 mL/min (70-130); Calcium 8.5 mg/dL (7.8-10.44); Carbon Dioxide 24 mmol/L (23-31); Chloride 102 mmol/L (98-107); Glucose 99 mg/dL (80-115); Potassium 3.4 mmol/L (3.5-5.1); Sodium 134 mmol/L (136-145)
[2020-05-15] MEDS: Acetaminophen 500 MG TAB PO PRN ×2 (06:31→19:19)
[2020-05-15] MEDS: Morphine 2 MG/ML VIAL SLOW IVP PRN ×2 (06:32→19:17)
--- NOTE | 2020-05-15 07:43 | PDOC.HOSPP ---
- Subjective Encounter Date: 05/15/20 Encounter Time: 07:37 Subjective: was seen this morning in follow-up of a subarachnoid hemorrhage. His sodium levels this morning were too low to allow for discharge, so he will staying in the hospital another day. He is feeling very anxious and associates SOB, palpitations, and nausea with it. His headache this morning rated a 7/10 for pain, so he was given morphine that provided some relief to bring it back to a 4-5/10. He also complains of constipation. He is requesting a stool softener to avoid increasing intracranial pressure. - Objective Vital Signs & Weight: Vital Signs (12 hours) Temp Pulse Resp BP BP Pulse Ox 05/15/20 07:28 98.0 F 55 L 18 141/74 H 97 05/15/20 03:53 98.5 F 57 L 16 118/69 97 05/15/20 00:01 64 135/78 05/15/20 00:00 98.2 F 55 L 16 135/78 96 05/14/20 20:00 98.5 F 68 18 160/80 H 97 Weight Weight 106.141 kg Most Recent Monitor Data Heart Rate from ECG 63 NIBP 117/62 NIBP BP-Mean 102 Respiration from ECG 18 SpO2 98 I&O: 05/14/20 05/15/20 05/16/20 06:59 06:59 06:59 Intake Total 3364 5016 Output Total 3250 375 Balance 114 4641 Result Diagrams: 05/12/20 07:18 05/15/20 04:46 Additional Labs: Accuchecks 05/14/20 05/14/20 05/14/20 20:13 16:32 10:47 POC Glucose 150 H 130 H 146 H 05/14/20 05/13/20 05/13/20 07:38 21:13 16:26 POC Glucose 95 125 H 180 H Hospitalist ROS - Review of Systems Eyes: denies: vision change Respiratory: reports: shortness of breath Cardiovascular: reports: palpitations. denies: chest pain Gastrointestinal: reports: nausea, constipation. denies: vomiting, diarrhea Neurological: denies: weakness, numbness - Medication Medications: Active Medications Generic Name Dose Route Start Last Admin Trade Name Freq PRN Reason Stop Dose Admin Acetaminophen 1,000 mg 05/11/20 09:11 05/15/20 06:31 Acetaminophen 500 Mg Tab PO 1,000 mg Q6H PRN Administration Headache/Fever or Pain Diphenhydramine HCl 50 mg 05/09/20 21:31 05/12/20 21:33 Diphenhydramine 50 Mg Cap PO 50 mg Q6H PRN Administration Itching or Insomnia Hydralazine HCl 5 mg 05/09/20 21:31 05/13/20 19:40 Hydralazine 20 Mg/Ml Vial SLOW IVP 5 mg Q15M PRN Administration SBP > 120 Insulin Glargine 10 units/ 0.1 mls @ 0 mls/hr 05/10/20 21:00 05/14/20 21:31 Miscellaneous Medication SC 0.1 mls BID NAVARRO Administration Sodium Chloride 256.4 meq/ 1,064.1 mls @ 45 mls/hr 05/10/20 22:45 05/14/20 21:29 Sterile Water IV 1,064.1 mls .[id number] NAVARRO Administration Insulin Human Lispro 0 units 05/10/20 16:39 05/13/20 16:35 Humalog 300 Units/3 Ml Vial SC 2 unit .MODERATE SLIDING SC PRN Administration Moderate Correctional Scale Labetalol HCl 10 mg 05/09/20 21:31 05/15/20 00:01 Labetalol Hcl 100 Mg/20 Ml Vial SLOW IVP 2 ml Q15M PRN Administration SBP > 120 Lisinopril 20 mg 05/12/20 09:00 05/14/20 07:40 Lisinopril 10 Mg Tab PO 20 mg DAILY NAVARRO Administration Metformin HCl 500 mg 05/14/20 17:00 05/14/20 17:45 Metformin 500 Mg Tab PO 500 mg BID-WM NAVARRO Administration Morphine Sulfate 1 mg 05/11/20 06:35 05/15/20 06:32 Morphine 2 Mg/Ml Vial SLOW IVP 1 mg Q2H PRN Administration Moderate to Severe Pain (6-10) Nimodipine 60 mg 05/10/20 01:00 05/15/20 03:54 Nimodipine 30 Mg Cap PO Not Given Q4HR NAVARRO Pantoprazole Sodium 40 mg 05/13/20 21:00 05/14/20 21:30 Pantoprazole 40 Mg Tab PO 40 mg Q12HR NAVARRO Administration Promethazine HCl 25 mg 05/09/20 21:31 05/10/20 01:20 Promethazine 25 Mg Tab PO 25 mg Q4H PRN Administration Nausea/Vomiting - Exam Eye: PERRL, anicteric sclera Heart: RRR, no murmur, no gallops, no rubs, normal peripheral pulses (d.p pulses bilaterally) Respiratory: no wheezes, no ronchi, normal chest expansion, no tachypnea Psychiatric: A&O x 3 Hosp A/P (1) Subarachnoid hemorrhage Code(s): I60.9 - NONTRAUMATIC SUBARACHNOID HEMORRHAGE, UNSPECIFIED Status: Acute (2) DM type 2 (diabetes mellitus, type 2) Status: Chronic Qualifiers: Diabetes mellitus penitentiary insulin use: without penitentiary use (3) H/O tongue cancer Status: Chronic (4) HTN (hypertension) Code(s): I10 - ESSENTIAL (PRIMARY) HYPERTENSION Status: Chronic Qualifiers: Hypertension type: essential hypertension Qualified Code(s): I10 - Essential (primary) hypertension (5) Obesity Code(s): E66.9 - OBESITY, UNSPECIFIED Status: Chronic Qualifiers: Body mass index: BMI 40.0-44.9 (6) basilar artery vasospasm Status: Suspected - Plan * Subarachnoid Hemorrhage- continue strict blood pressure control. He is currently on Nimodipine and will need this for a week past discharge. * Hyponatremia- continue with neurosurgery. * HTN- within good range continue Nimodipine, and Lisinopril has been started * DM- continue SSI- will continue to hold Metformin for now * No lovennox or heparin due to ICH * Symptom management- with Tylenol. No tramadol, due to the seizure potential with this medication. No codeine either
--- NOTE | 2020-05-15 07:55 | PRG ---
DATE OF SERVICE: 05/15/2020 I saw Mr. Harris in his hospital room this morning. We turned down his 1.5 normal saline yesterday to 45 cc an hour. Unfortunately, his sodium dipped. Overnight, Mr. Harris has no complaints. There are no fevers recorded. Blood pressures have been stable. There is no change on his neurological examination. As mentioned, this morning's blood test show a sodium of 134. I am adding oral salt tabs with each meal. We can keep his sodium stable and eventually get him off the IV fluid. We could send him home. He might need to use salt tablets with every meal and salt his food until next Wednesday. He should remain on amlodipine until then as well. We will check his sodium again tomorrow morning and make adjustments. Job ID: [id number] [facility]
[2020-05-15] MEDS ORDERED: Potassium Chloride 20 MEQ TAB PO SCH (08:15)
[2020-05-15] MEDS: Sodium Chloride 1 GM TAB PO SCH ×3 (08:40→17:30)
[2020-05-15] MEDS: metFORMIN 500 MG TAB PO SCH ×2 (08:41→17:31)
[2020-05-15] MEDS: Lisinopril 10 MG TAB PO SCH (08:41)
[2020-05-15] MEDS: Insulin Glargine 10 UNITS in Pre-Filled Syringe 1 EACH SC SCH ×2 (09:50→21:26)
--- NOTE | 2020-05-15 16:20 | PDOC.HOSPP ---
- Subjective Encounter Date: 05/15/20 Encounter Time: 16:18 Subjective: Mr. Harris was seen today in follow-up of subarachnoid hemorrhage. He noted a headache last night which was severe. He was also noted to have a slightly lower sodium level this morning. - Objective Vital Signs & Weight: Vital Signs (12 hours) Temp Pulse Resp BP Pulse Ox 05/15/20 15:35 97.8 F 64 17 125/67 98 05/15/20 12:08 98.0 F 62 18 134/72 96 05/15/20 07:28 98.0 F 55 L 18 141/74 H 97 Weight Weight 234 lb Most Recent Monitor Data Heart Rate from ECG 63 NIBP 117/62 NIBP BP-Mean 102 Respiration from ECG 18 SpO2 98 I&O: 05/14/20 05/15/20 05/16/20 06:59 06:59 06:59 Intake Total 3364 5016 Output Total 3250 375 Balance 114 4641 Result Diagrams: 05/12/20 07:18 05/15/20 04:46 Additional Labs: Accuchecks 05/15/20 05/14/20 05/14/20 11:11 20:13 16:32 POC Glucose 119 H 150 H 130 H Hospitalist ROS - Medication Medications: Active Medications Generic Name Dose Route Start Last Admin Trade Name Freq PRN Reason Stop Dose Admin Acetaminophen 1,000 mg 05/11/20 09:11 05/15/20 06:31 Acetaminophen 500 Mg Tab PO 1,000 mg Q6H PRN Administration Headache/Fever or Pain Diphenhydramine HCl 50 mg 05/09/20 21:31 05/12/20 21:33 Diphenhydramine 50 Mg Cap PO 50 mg Q6H PRN Administration Itching or Insomnia Hydralazine HCl 5 mg 05/09/20 21:31 05/13/20 19:40 Hydralazine 20 Mg/Ml Vial SLOW IVP 5 mg Q15M PRN Administration SBP > 120 Insulin Glargine 10 units/ 0.1 mls @ 0 mls/hr 05/10/20 21:00 05/15/20 09:50 Miscellaneous Medication SC Not Given BID NAVARRO Sodium Chloride 256.4 meq/ 1,064.1 mls @ 45 mls/hr 05/10/20 22:45 05/14/20 21:29 Sterile Water IV 1,064.1 mls .[id number] NAVARRO Administration Insulin Human Lispro 0 units 05/10/20 16:39 05/13/20 16:35 Humalog 300 Units/3 Ml Vial SC 2 unit .MODERATE SLIDING SC PRN Administration Moderate Correctional Scale Labetalol HCl 10 mg 05/09/20 21:31 05/15/20 00:01 Labetalol Hcl 100 Mg/20 Ml Vial SLOW IVP 2 ml Q15M PRN Administration SBP > 120 Lisinopril 20 mg 05/12/20 09:00 05/15/20 08:41 Lisinopril 10 Mg Tab PO 20 mg DAILY NAVARRO Administration Metformin HCl 500 mg 05/14/20 17:00 05/15/20 08:41 Metformin 500 Mg Tab PO 500 mg BID-WM NAVARRO Administration Morphine Sulfate 1 mg 05/11/20 06:35 05/15/20 06:32 Morphine 2 Mg/Ml Vial SLOW IVP 1 mg Q2H PRN Administration Moderate to Severe Pain (6-10) Nimodipine 60 mg 05/10/20 01:00 05/15/20 12:11 Nimodipine 30 Mg Cap PO 60 mg Q4HR NAVARRO Administration Pantoprazole Sodium 40 mg 05/13/20 21:00 05/15/20 08:43 Pantoprazole 40 Mg Tab PO 40 mg Q12HR NAVARRO Administration Promethazine HCl 25 mg 05/09/20 21:31 05/10/20 01:20 Promethazine 25 Mg Tab PO 25 mg Q4H PRN Administration Nausea/Vomiting Sodium Chloride 1 gm 05/15/20 08:00 05/15/20 12:12 Sodium Chloride 1 Gm Tab PO 1 gm TID-WM NAVARRO Administration Sodium Chloride 10 ml 05/15/20 09:00 05/15/20 08:42 Flush - Normal Saline 10 Ml Syringe IVF 10 ml Q12HR NAVARRO Administration - Exam Eye: PERRL, anicteric sclera Heart: RRR, no murmur, no gallops, no rubs, normal peripheral pulses Respiratory: CTAB, no wheezes, no rales, no ronchi, normal chest expansion, no tachypnea Gastrointestinal: soft, non-tender, non-distended, normal bowel sounds Extremities: no cyanosis, no edema Hosp A/P (1) Subarachnoid hemorrhage Code(s): I60.9 - NONTRAUMATIC SUBARACHNOID HEMORRHAGE, UNSPECIFIED Status: Acute (2) DM type 2 (diabetes mellitus, type 2) Status: Chronic Qualifiers: Diabetes mellitus nursing home insulin use: without nursing home use (3) H/O tongue cancer Status: Chronic (4) HTN (hypertension) Code(s): I10 - ESSENTIAL (PRIMARY) HYPERTENSION Status: Chronic Qualifiers: Hypertension type: essential hypertension Qualified Code(s): I10 - Essential (primary) hypertension (5) Obesity Code(s): E66.9 - OBESITY, UNSPECIFIED Status: Chronic Qualifiers: Body mass index: BMI 40.0-44.9 (6) basilar artery vasospasm Status: Suspected - Plan * Subarachnoid Hemorrhage- stable neurologically * Hyponatremia- Neuro-surgery evaluation noted. He will need to remain in the hospital at least one more night. Sodium chloride supplementation was increased, and will re-checked in the AM * HTN- blood pressure is controlled * DM- stable * No lovennox or heparin due to ICH * Symptom management- with Tylenol
[2020-05-16] MEDS: niMODipine 30 MG CAP PO SCH ×4 (00:31→12:04)
[2020-05-16 04:45] LABS: Anion Gap 9 mmol/L (10-20); BUN (Urea Nitrogen) 10 mg/dL (8.4-25.7); Calc. Creatinine Clearance 115 mL/min (70-130); Calcium 8.3 mg/dL (7.8-10.44); Carbon Dioxide 29 mmol/L (23-31); Chloride 103 mmol/L (98-107); Glucose 104 mg/dL (80-115); Potassium 3.7 mmol/L (3.5-5.1); Sodium 137 mmol/L (136-145)
[2020-05-16] MEDS: Acetaminophen 500 MG TAB PO PRN (05:45)
[2020-05-16] MEDS: Morphine 2 MG/ML VIAL SLOW IVP PRN (05:46)
--- NOTE | 2020-05-16 07:37 | PDOC.HOSPP ---
- Subjective Encounter Date: 05/16/20 Encounter Time: 07:35 Subjective: Mr. Harris was seen this morning in follow-up of his subarachnoid hemorrhage. His sodium levels increased this morning, so he anticipates going home in the afternoon today. - Objective Vital Signs & Weight: Vital Signs (12 hours) Temp Pulse Resp BP Pulse Ox 05/16/20 07:19 98.3 F 52 L 16 124/64 92 L 05/16/20 04:00 98.1 F 52 L 16 133/73 05/16/20 00:00 59 L 16 117/64 05/15/20 20:00 97.9 F 59 L 18 120/65 Weight Weight 100.698 kg Most Recent Monitor Data Heart Rate from ECG 63 NIBP 117/62 NIBP BP-Mean 102 Respiration from ECG 18 SpO2 98 I&O: 05/15/20 05/16/20 05/17/20 06:59 06:59 06:59 Intake Total 5016 1500 Output Total 375 Balance 4641 1500 Result Diagrams: 05/12/20 07:18 05/16/20 04:03 Additional Labs: Accuchecks 05/16/20 05/15/20 05/15/20 06:11 20:36 16:30 POC Glucose 88 125 H 136 H 05/15/20 11:11 POC Glucose 119 H Hospitalist ROS - Review of Systems Gastrointestinal: denies: nausea, vomiting, abdominal pain, diarrhea, constipation Neurological: denies: weakness, numbness - Medication Medications: Active Medications Generic Name Dose Route Start Last Admin Trade Name Freq PRN Reason Stop Dose Admin Acetaminophen 1,000 mg 05/11/20 09:11 05/16/20 05:45 Acetaminophen 500 Mg Tab PO 1,000 mg Q6H PRN Administration Headache/Fever or Pain Diphenhydramine HCl 50 mg 05/09/20 21:31 05/12/20 21:33 Diphenhydramine 50 Mg Cap PO 50 mg Q6H PRN Administration Itching or Insomnia Hydralazine HCl 5 mg 05/09/20 21:31 05/13/20 19:40 Hydralazine 20 Mg/Ml Vial SLOW IVP 5 mg Q15M PRN Administration SBP > 120 Insulin Glargine 10 units/ 0.1 mls @ 0 mls/hr 05/10/20 21:00 05/15/20 21:26 Miscellaneous Medication SC Not Given BID NAVARRO Insulin Human Lispro 0 units 05/10/20 16:39 05/13/20 16:35 Humalog 300 Units/3 Ml Vial SC 2 unit .MODERATE SLIDING SC PRN Administration Moderate Correctional Scale Labetalol HCl 10 mg 05/09/20 21:31 05/15/20 00:01 Labetalol Hcl 100 Mg/20 Ml Vial SLOW IVP 2 ml Q15M PRN Administration SBP > 120 Lisinopril 20 mg 05/12/20 09:00 05/15/20 08:41 Lisinopril 10 Mg Tab PO 20 mg DAILY NAVARRO Administration Metformin HCl 500 mg 05/14/20 17:00 05/15/20 17:31 Metformin 500 Mg Tab PO 500 mg BID-WM NAVARRO Administration Morphine Sulfate 1 mg 05/11/20 06:35 05/16/20 05:46 Morphine 2 Mg/Ml Vial SLOW IVP 1 mg Q2H PRN Administration Moderate to Severe Pain (6-10) Nimodipine 60 mg 05/10/20 01:00 05/16/20 04:16 Nimodipine 30 Mg Cap PO 60 mg Q4HR NAVARRO Administration Pantoprazole Sodium 40 mg 05/13/20 21:00 05/15/20 20:22 Pantoprazole 40 Mg Tab PO 40 mg Q12HR NAVARRO Administration Promethazine HCl 25 mg 05/09/20 21:31 05/10/20 01:20 Promethazine 25 Mg Tab PO 25 mg Q4H PRN Administration Nausea/Vomiting Sodium Chloride 1 gm 05/15/20 08:00 05/15/20 17:30 Sodium Chloride 1 Gm Tab PO 1 gm TID-WM NAVARRO Administration Sodium Chloride 10 ml 05/15/20 09:00 05/15/20 21:26 Flush - Normal Saline 10 Ml Syringe IVF 10 ml Q12HR NAVARRO Administration - Exam Eye: PERRL, anicteric sclera Neck: no JVD Heart: RRR, no murmur, no gallops, no rubs, normal peripheral pulses Respiratory: no wheezes, no rales, no ronchi, normal chest expansion, no tachypnea Extremities: no cyanosis, no clubbing, no edema Psychiatric: A&O x 3 Hosp A/P (1) Subarachnoid hemorrhage Code(s): I60.9 - NONTRAUMATIC SUBARACHNOID HEMORRHAGE, UNSPECIFIED Status: Acute (2) DM type 2 (diabetes mellitus, type 2) Status: Chronic 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 He is currently on Nimodipine and will need this for a week past discharge. * Hyponatremia- continue with neurosurgery. * HTN- within good range continue Nimodipine, and Lisinopril has been started * DM- stable. * No lovennox or heparin due to ICH * Symptom management- with Tylenol. No tramadol, due to the seizure potential with this medication. No codeine either
--- NOTE | 2020-05-16 08:03 | PRG ---
DATE OF SERVICE: I saw Elieser Harris in his hospital room this morning. We kept his 1.5 normal saline running yesterday at 45 mL an hour. His sodium was checked this morning and it looks normal. He feels well. Overnight, I do not see any fevers among the electronically recorded vital signs. Other vital signs are stable. The neurological examination is normal. Sodium this morning is 137. I am going to continue with the salt tablets, but we will stop the supplemental IV sodium. If his sodium remains normal after lunch today, he can be discharged home. He is going to need salt tablet three times a day with meals and nimodipine 60 mg p.o. q.4 hours through next Wednesday and then those can both be stopped. A followup arrangements will be made in our office. We will discuss conventional angiography in a few weeks. Job ID: [id number] MTDD
[2020-05-16] MEDS: Insulin Glargine 10 UNITS in Pre-Filled Syringe 1 EACH SC SCH (08:27)
[2020-05-16] MEDS: Sodium Chloride 1 GM TAB PO SCH ×2 (08:28→12:04)
[2020-05-16] MEDS: Lisinopril 10 MG TAB PO SCH (08:28)
[2020-05-16] MEDS: metFORMIN 500 MG TAB PO SCH (08:28)
--- NOTE | 2020-05-16 11:32 | PDOC.HOSPP ---
- Subjective Encounter Date: 05/16/20 Encounter Time: 11:30 Subjective: Mr. Harris was seen today in follow-up of subarachnoid hemorrhage. He says he feels fine and want to go home - Objective Vital Signs & Weight: Vital Signs (12 hours) Temp Pulse Resp BP BP Pulse Ox 05/16/20 11:08 98.7 F 58 L 16 131/73 98 05/16/20 08:28 124/64 05/16/20 07:19 98.3 F 52 L 16 124/64 92 L 05/16/20 04:00 98.1 F 52 L 16 133/73 05/16/20 00:00 59 L 16 117/64 Weight Weight 222 lb Most Recent Monitor Data Heart Rate from ECG 63 NIBP 117/62 NIBP BP-Mean 102 Respiration from ECG 18 SpO2 98 I&O: 05/15/20 05/16/20 05/17/20 06:59 06:59 06:59 Intake Total 5016 1500 Output Total 375 Balance 4641 1500 Result Diagrams: 05/12/20 07:18 05/16/20 04:03 Additional Labs: Accuchecks 05/16/20 05/15/20 05/15/20 06:11 20:36 16:30 POC Glucose 88 125 H 136 H Hospitalist ROS - Medication Medications: Active Medications Generic Name Dose Route Start Last Admin Trade Name Bebetoq PRN Reason Stop Dose Admin Acetaminophen 1,000 mg 05/11/20 09:11 05/16/20 05:45 Acetaminophen 500 Mg Tab PO 1,000 mg Q6H PRN Administration Headache/Fever or Pain Diphenhydramine HCl 50 mg 05/09/20 21:31 05/12/20 21:33 Diphenhydramine 50 Mg Cap PO 50 mg Q6H PRN Administration Itching or Insomnia Hydralazine HCl 5 mg 05/09/20 21:31 05/13/20 19:40 Hydralazine 20 Mg/Ml Vial SLOW IVP 5 mg Q15M PRN Administration SBP > 120 Insulin Glargine 10 units/ 0.1 mls @ 0 mls/hr 05/10/20 21:00 05/16/20 08:27 Miscellaneous Medication SC 0.1 mls BID NAVARRO Administration Insulin Human Lispro 0 units 05/10/20 16:39 05/13/20 16:35 Humalog 300 Units/3 Ml Vial SC 2 unit .MODERATE SLIDING SC PRN Administration Moderate Correctional Scale Labetalol HCl 10 mg 05/09/20 21:31 05/15/20 00:01 Labetalol Hcl 100 Mg/20 Ml Vial SLOW IVP 2 ml Q15M PRN Administration SBP > 120 Lisinopril 20 mg 05/12/20 09:00 05/16/20 08:28 Lisinopril 10 Mg Tab PO 20 mg DAILY NAVARRO Administration Metformin HCl 500 mg 05/14/20 17:00 05/16/20 08:28 Metformin 500 Mg Tab PO 500 mg BID-WM NAVARRO Administration Morphine Sulfate 1 mg 05/11/20 06:35 05/16/20 05:46 Morphine 2 Mg/Ml Vial SLOW IVP 1 mg Q2H PRN Administration Moderate to Severe Pain (6-10) Nimodipine 60 mg 05/10/20 01:00 05/16/20 08:29 Nimodipine 30 Mg Cap PO 60 mg Q4HR NAVARRO Administration Pantoprazole Sodium 40 mg 05/13/20 21:00 05/16/20 08:28 Pantoprazole 40 Mg Tab PO 40 mg Q12HR NAVARRO Administration Promethazine HCl 25 mg 05/09/20 21:31 05/10/20 01:20 Promethazine 25 Mg Tab PO 25 mg Q4H PRN Administration Nausea/Vomiting Sodium Chloride 1 gm 05/15/20 08:00 05/16/20 08:28 Sodium Chloride 1 Gm Tab PO 1 gm TID-WM NAVARRO Administration Sodium Chloride 10 ml 05/15/20 09:00 05/16/20 08:29 Flush - Normal Saline 10 Ml Syringe IVF 10 ml Q12HR NAVARRO Administration - Exam Eye: PERRL, anicteric sclera Heart: RRR, no gallops, no rubs, normal peripheral pulses Respiratory: CTAB, no wheezes, no rales, no ronchi, normal chest expansion, no tachypnea, normal percussion Gastrointestinal: soft, non-tender, non-distended, normal bowel sounds Extremities: no cyanosis, no edema Hosp A/P (1) Subarachnoid hemorrhage Code(s): I60.9 - NONTRAUMATIC SUBARACHNOID HEMORRHAGE, UNSPECIFIED Status: Acute (2) DM type 2 (diabetes mellitus, type 2) Status: Chronic Qualifiers: Diabetes mellitus senior care insulin use: without senior care use (3) H/O tongue cancer Status: Chronic (4) HTN (hypertension) Code(s): I10 - ESSENTIAL (PRIMARY) HYPERTENSION Status: Chronic Qualifiers: Hypertension type: essential hypertension Qualified Code(s): I10 - Essential (primary) hypertension (5) Obesity Code(s): E66.9 - OBESITY, UNSPECIFIED Status: Chronic Qualifiers: Body mass index: BMI 40.0-44.9 (6) basilar artery vasospasm Status: Suspected - Plan * Subarachnoid Hemorrhage- stable neurologically * HTN- blood pressure is controlled * DM- stable * No lovennox or heparin due to ICH * Symptom management- with Tylenol * Will see what his afternoon serum sodium is, and probable discharge home
[2020-05-16 15:07] LABS: Chloride 103 mmol/L (98-107); Potassium 4.2 mmol/L (3.5-5.1); Sodium 137 mmol/L (136-145)
[2020-05-16 15:08] LABS: Calcium 8.7 mg/dL (7.8-10.44); Glucose 101 mg/dL (80-115)
[2020-05-16 15:10] LABS: Anion Gap 14 mmol/L (10-20); Carbon Dioxide 24 mmol/L (23-31)
[2020-05-16 15:12] LABS: Calc. Creatinine Clearance 126 mL/min (70-130)
[2020-05-16 15:13] LABS: BUN (Urea Nitrogen) 12 mg/dL (8.4-25.7)
[2020-05-16 15:21] VITALS: BP 133/63; TEMP 97.7
--- NOTE | 2020-05-16 17:47 | PDOC.DS.DS ---
Provider - Provider Date of Admission: 05/09/20 21:34 Admitting Provider: Feliberto Kumar MD Consultations: Other (Neurosurgery) Primary Care Physician: Cassie Smith MD Course - Hospital Course Hospital Course: Mr. Harris is a pleasant 60-year-old gentleman that has a history of diabetes mellitus and hypertension. He also has a history of oral pharyngeal carcinoma. He was transferred to our hospital from the [facility] emergency room after he was found to have a subarachnoid hemorrhage. The neurosurgery team was consulted. He had minimal deficits and with the small size of the subarachnoid hemorrhage it was not felt that surgery would be indicated. He was monitored in the ICU with strict blood pressure control. His sodium was also followed ca refully. He did have some dips in his serum sodium which required replacement with salt tablets as well as IV saline administration with hypertonic saline. Also his blood pressure medications were adjusted. He had been on hydrochlorothiazide and this was discontinued with the concern for it accen tuating hyponatremia. He was counseled extensively on the need to stop the hydrochlorothiazide. CT angiogram on admission had showed a subarachnoid hemorrhage in the prepontine cistern adjacent to the basilar artery there was an area of vasospasm. He was placed on new mode of pain to help with the vasospasm as well as his blood pressure and he would need to continue the pneumonia obtain until next Wednesday in addition to the salt tablets. At the time of discharge the patient was clinically much improved ambulating and had no residual deficits. He had a facial droop which was predating the subarachnoid hemorrhage from his previous tongue surgery. He did have some headache however this was managed with Tylenol. Pertinent Studies: CT Angiogram of the [place] CT scan of the brain - Labs Lab Results: 05/12/20 07:18 05/16/20 14:43 Abnormal Lab Results - Last 48 hrs 05/15/20 04:46: Sodium 134 L, Potassium 3.4 L 05/16/20 04:03: Anion Gap 9 L - Physical Exam Vitals: Vital Signs (12 hours) Temp Pulse Resp BP BP Pulse Ox 05/16/20 15:13 97.7 F 55 L 16 133/63 96 05/16/20 11:08 98.7 F 58 L 16 131/73 98 05/16/20 08:28 124/64 05/16/20 07:19 98.3 F 52 L 16 124/64 92 L Weight Weight 222 lb Most Recent Monitor Data Heart Rate from ECG 63 NIBP 117/62 NIBP BP-Mean 102 Respiration from ECG 18 SpO2 98 Physical Exam: The patient was seen and examined on the day of discharge. 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 (3) H/O tongue cancer Status: Chronic (4) HTN (hypertension) Code(s): I10 - ESSENTIAL (PRIMARY) HYPERTENSION Status: Chronic Qualifiers: Hypertension type: essential hypertension Qualified Code(s): I10 - Essential (primary) hypertension (5) Obesity Code(s): E66.9 - OBESITY, UNSPECIFIED Status: Chronic Qualifiers: Body mass index: BMI 40.0-44.9 (6) basilar artery vasospasm Status: Suspected Plan - Discharge Medications Prescriptions: Nimodipine [Nimotop] 60 mg PO Q4HR #36 cap Sodium Chloride 1 gm PO TID-WM #20 tab Home Medications: Medication Instructions Recorded Confirmed Type Lisinopril [Prinivil] 20 mg PO DAILY 03/05/14 05/10/20 History metFORMIN [Glucophage] 500 mg PO BID-WM 05/10/20 05/10/20 History Nimodipine [Nimotop] 60 mg PO Q4HR #36 cap 05/16/20 Rx Sodium Chloride 1 gm PO TID-WM #20 tab 05/16/20 Rx Allergies: codeine Allergy (Verified 05/10/20 04:56) Sulfa (Sulfonamide Antibiotics) Allergy (Verified 05/10/20 04:56) - Discharge Instructions Activity:: Activity as Tolerated Nourishment:: Regular Diet - Follow up Plan Referrals: Hero Powell MD [Active] - 2-3 Weeks (CALL OFFICE TO SCHEDULE APPOINTMENT) Cassie Smith MD [Primary Care Provider] - 7 Days (CALL OFFICE TO SCHEDULE APPOINTMENT) Disposition: HOME Quality - Care Measures CORE MEASURES:: N/A
== END 2020-05-16 16:15 | disposition home or self-care (01) | DRG 65 ==
LOC: ERS 19:58 → ERHOLD 21:34 → CCU 05-10 19:51 → PACU-TCU 05-12 20:29 → 2NO 05-14 11:03
PROVIDERS: ADMIT Internal Medicine; ATTEND Internal Medicine
DX: I60.9 Nontraumatic subarachnoid hemorrhage, unspecified (principal); Z68.41 Body mass index [BMI] 40.0-44.9, adult; C79.89 Secondary malignant neoplasm of other specified sites; E87.1 Hypo-osmolality and hyponatremia; E11.9 Type 2 diabetes mellitus without complications; I10 Essential (primary) hypertension; E66.9 Obesity, unspecified; R29.810 Facial weakness; Z88.5 Allergy status to narcotic agent; Z87.820 Personal history of traumatic brain injury; Z88.2 Allergy status to sulfonamides; Z85.810 Personal history of malignant neoplasm of tongue; Z87.891 Personal history of nicotine dependence
CPT/HCPCS: 36415; 36416; 70496; 80048; 85025; 87635; 93005; 96365; A4217; C9113; J0360; J1815; J2270; J8540; Q0163; Q0169; Q9967; U0003; U0005

== ENCOUNTER 2020-11-29 03:48 | Inpatient (IN) | payer SELFPAY ==
[2020-11-29 04:22] LABS: #Basophils 0.1 thou/uL (0.0-0.2); #Lymphocytes 0.4 thou/uL (1.20-3.40); #Monocytes 0.5 thou/uL (0.11-0.59); #Neutrophils 4.7 thou/uL (1.40-6.50); %Basophils 1.5 % (0.0-1.0); %Eosinophils 0.3 % (0.0-10.0); %Lymphocytes 6.7 % (21.0-51.0); %Neutrophils 83.4 % (42.0-75.0); Hemoglobin 14.5 g/dL (14.0-18.0); Mean Corpuscular HGB CONC 29.1 g/dL (32.0-36.0); Mean Corpuscular Hemoglobin 28.3 pg (27.0-31.0); Mean Corpuscular Volume 97.3 fL (78.0-98.0); Platelet Count 571 thou/uL (130-400); Red Blood Cell (RBC) Count 5.14 mill/uL (4.70-6.10); White Blood Cell (WBC) Count 5.7 thou/uL (4.8-10.8)
[2020-11-29] MEDS ORDERED: Lorazepam 2 MG/ML VIAL ONE (04:30)
[2020-11-29 04:42] LABS: ALT (SGPT) 42 U/L (8-55); AST (SGOT) 79 U/L (5-34); Albumin 3.1 g/dL (3.4-4.8); Alkaline Phosphatase 132 U/L (40-110); Anion Gap 17 mmol/L (10-20); BUN (Urea Nitrogen) 61 mg/dL (8.4-25.7); Bilirubin, Total 1.2 mg/dL (0.2-1.2); Calc. Creatinine Clearance 0 mL/min (70-130); Calcium 8.8 mg/dL (7.8-10.44); Carbon Dioxide 26 mmol/L (23-31); Chloride 102 mmol/L (98-107); Glucose 276 mg/dL (80-115); Potassium 4.9 mmol/L (3.5-5.1); Protein, Total 7.1 g/dL (5.8-8.1); Sodium 140 mmol/L (136-145)
[2020-11-29] MEDS ORDERED: Sodium Chloride 0.9% 100 ML ONE (04:55)
[2020-11-29] MEDS ORDERED: Cefepime 2 GM VIAL ONE (04:55)
[2020-11-29] MEDS ORDERED: Vancomycin 1 GM/200 ML BAG ONE (04:56)
[2020-11-29] MEDS ORDERED: Ketamine 50 MG/ML (10ML VIAL) ONE ×2 (05:01→06:57)
[2020-11-29 05:04] LABS: SARS-CoV-2 NAA Rapid Test DETECTED (NotDetected)
[2020-11-29 05:10] LABS: Actual Bicarbonate (HCO3v) 24 mEq/L (22-28); Analyzer IN Cardio ER; Base Excess 0.3 mEq/L (-2.0 to +3.0); Hemoglobin (Hb) 14.6 g/dL (13.1-17.2); pH (venous) 7.43 (7.32-7.43)
[2020-11-29 05:11] LABS: Calcium, Ionized (venous) 0.93 mmol/L (1.16-1.32); Chloride (VBG) 109 mmol/L (98-106); Potassium (VBG) 4.26 mmol/L (3.70-5.30); Sodium 140.8 mmol/L (133-146)
[2020-11-29 07:39] LABS: Lactic Acid 2.7 mmol/L (0.5-2.2)
[2020-11-29 07:45] LABS: Troponin I 0.014 ng/mL (< 0.028)
[2020-11-29] MEDS ORDERED: Acetaminophen 650 MG Suppository PR PRN (09:00)
[2020-11-29] MEDS ORDERED: Acetaminophen 325 MG TAB PO SCH (09:00)
[2020-11-29] MEDS ORDERED: Ketorolac Tromethamine 30 MG/ML VIAL IVP PRN (09:01)
[2020-11-29] MEDS ORDERED: Dextrose 50% Abboject 50 ML SYRINGE SLOW IVP PRN (09:10)
[2020-11-29] MEDS ORDERED: Dextrose 5% in Water 1,000 ML IV PRN (09:10)
[2020-11-29] MEDS ORDERED: Iopamidol-370 76% 500 ML 1 ML ONE (09:33)
[2020-11-29] MEDS ORDERED: Dexamethasone 10 MG in Sodium Chloride 0.9% 50 ML IVPB SCH (09:45)
[2020-11-29] MEDS ORDERED: Pantoprazole 40 MG VIAL IVP SCH (09:45)
[2020-11-29 09:53] LABS: Actual Bicarbonate (HCO3a) 23.2 mEq/L (22-28); Base Excess (BEa) -0.4 mEq/L (-2.0 to +3.0); CO2 Tension 34.6 mmHg (35.0-45.0); Calcium, Ionized (arterial) 1.06 mmol/L (1.12-1.30); Carboxyhemoglobin (COHb) 0.1 gm% (0.0-3.0); Hemoglobin (Hb) 13.4 g/dL (14.0-18.0); O2 Tension (PaO2), arterial 61.6 mmHg (> 80.0); Potassium - ABG Lab 3.86 mmol/L (3.70-5.30); pH, Arterial 7.44 (7.35-7.45)
[2020-11-29 09:56] LABS: Puncture Site RRA
[2020-11-29] MEDS: Enoxaparin Sodium 40 MG/0.4 ML SYRINGE SC SCH (10:14)
[2020-11-29] MEDS: Sodium Chloride 0.9% 1,000 ML IV SCH (10:23)
[2020-11-29 10:43] LABS: Troponin I 0.014 ng/mL (< 0.028)
[2020-11-29] MEDS ORDERED: VANCOMYCIN IVPB PRN (11:09)
[2020-11-29] MEDS: VANCOMYCIN 2 GRAM/400 ML BAG 2 GM in Premix Bag 1 BAG IVPB SCH (12:22)
[2020-11-29] MEDS: niMODipine 30 MG CAP PO SCH ×3 (14:41→21:00)
[2020-11-29] MEDS ORDERED: Fentanyl CADD 100 ML ONE (15:23)
[2020-11-29] MEDS ORDERED: Propofol 1,000 MG/100 ML VIAL IV ONE (15:24)
[2020-11-29] MEDS ORDERED: Diazepam 5 MG TAB PO PRN (15:33)
[2020-11-29] MEDS ORDERED: Thiamine HCl 200 MG/2 ML VIAL IM SCH (15:45)
[2020-11-29] MEDS ORDERED: Diazepam 5 MG TAB PO SCH (15:45)
[2020-11-29] MEDS ORDERED: DISCONTINUE PREVIOUS NARCOTIC PAIN MEDICATIONS AND BENZODIAZEPINES FS SCH (16:00)
[2020-11-29] MEDS ORDERED: Morphine 2 MG/ML VIAL SLOW IVP PRN (16:00)
[2020-11-29] MEDS ORDERED: Propofol BOLUS 1,000 MG/100 ML VIAL IV PRN (16:00)
[2020-11-29] MEDS ORDERED: Fentanyl BOLUS 250 ML IVPB PRN (16:00)
[2020-11-29 16:01] LABS: Actual Bicarbonate (HCO3a) 19.9 mEq/L (22-28); Base Excess (BEa) -4.1 mEq/L (-2.0 to +3.0); CO2 Tension 33.1 mmHg (35.0-45.0); Calcium, Ionized (arterial) 1.11 mmol/L (1.12-1.30); Carboxyhemoglobin (COHb) 0.3 gm% (0.0-3.0); Hemoglobin (Hb) 13.9 g/dL (14.0-18.0); Potassium - ABG Lab 4.43 mmol/L (3.70-5.30)
[2020-11-29 16:03] LABS: ALV-art Gradient 470.125 mmHg (0-20); O2 Tension (PaO2), arterial 58.9 mmHg (> 80.0); Puncture Site RBA
[2020-11-29] MEDS ORDERED: Vecuronium 10 MG VIAL ONE ×2 (16:22→17:38)
[2020-11-29] MEDS: Vecuronium 10 MG VIAL IV PRN ×2 (16:30→17:54)
[2020-11-29] MEDS: Lorazepam 2 MG/ML VIAL SLOW IVP PRN (16:30)
[2020-11-29] MEDS: Cefepime 1 GM in Sodium Chloride 0.9% 100 ML IVPB SCH (16:57)
[2020-11-29] MEDS ORDERED: Norepinephrine 8 MG/0.9% NS 250 ML IVPB SCH (23:45)
[2020-11-30] MEDS: niMODipine 30 MG CAP PO SCH ×6 (01:00→20:11)
[2020-11-30] MEDS: Sodium Chloride 0.9% 1,000 ML IV SCH ×3 (03:30→15:53)
[2020-11-30] MEDS ORDERED: Diazepam 5 MG TAB PO PRN (04:00)
[2020-11-30] MEDS: Cefepime 1 GM in Sodium Chloride 0.9% 100 ML IVPB SCH ×2 (05:16→16:21)
[2020-11-30] MEDS: Propofol 1,000 MG/100 ML VIAL IV PRN ×2 (05:18→08:54)
[2020-11-30] MEDS: Dexamethasone 10 MG in Sodium Chloride 0.9% 50 ML IVPB SCH (08:53)
[2020-11-30] MEDS: Magnesium Oxide 400 MG TAB PO SCH (08:54)
[2020-11-30] MEDS: Folic Acid 1 MG TAB PO SCH (08:54)
[2020-11-30] MEDS: Multivitamin W/ Minerals 1 TAB PO SCH (08:54)
[2020-11-30] MEDS: Enoxaparin Sodium 40 MG/0.4 ML SYRINGE SC SCH ×2 (08:54→20:11)
[2020-11-30] MEDS: Pantoprazole 40 MG VIAL IVP SCH (08:55)
[2020-11-30] MEDS: Lisinopril 10 MG TAB PO SCH (08:57)
[2020-11-30] MEDS: Thiamine 100 MG TAB PO SCH (09:03)
[2020-11-30 09:22] LABS: ALT (SGPT) 24 U/L (8-55); AST (SGOT) 24 U/L (5-34); Albumin 2.4 g/dL (3.4-4.8); Alkaline Phosphatase 86 U/L (40-110); Anion Gap 14 mmol/L (10-20); BUN (Urea Nitrogen) 49 mg/dL (8.4-25.7); Bilirubin, Total 0.6 mg/dL (0.2-1.2); Calc. Creatinine Clearance 103 mL/min (70-130); Calcium 8.1 mg/dL (7.8-10.44); Carbon Dioxide 17 mmol/L (23-31); Chloride 114 mmol/L (98-107); Globulin 3.1 g/dL (2.4-3.5); Glucose 402 mg/dL (80-115); Potassium 4.6 mmol/L (3.5-5.1); Protein, Total 5.5 g/dL (5.8-8.1); Sodium 140 mmol/L (136-145)
[2020-11-30 09:47] LABS: Hemoglobin 13.8 g/dL (14.0-18.0); Mean Corpuscular HGB CONC 33.2 g/dL (32.0-36.0); Mean Corpuscular Hemoglobin 32.3 pg (27.0-31.0); Mean Corpuscular Volume 97.4 fL (78.0-98.0); Mean Platelet Volume 7.7 fL (7.4-10.4); Platelet Count 408 thou/uL (130-400); RBC Distribution Width 13.1 % (11.5-14.5); Red Blood Cell (RBC) Count 4.27 mill/uL (4.70-6.10); White Blood Cell (WBC) Count 5.1 thou/uL (4.8-10.8)
[2020-11-30 10:00] LABS: Band 2 % (5-11); Large Platelets SLIGHT; Lymphocytes 4 % (21-51); MDiff Complete? YES; Monocytes 7 % (0-10); Neutrophil 87 % (42-75); Platelet Morphology Comment Appears Increased
[2020-11-30] MEDS: VANCOMYCIN 2 GRAM/400 ML BAG 2 GM in Premix Bag 1 BAG IVPB SCH (11:43)
[2020-11-30] MEDS: Vecuronium 10 MG VIAL IV PRN ×5 (11:44→22:42)
[2020-11-30] MEDS: Insulin Regular 300 UNITS/3 ML VIAL SC PRN ×3 (13:17→21:14)
[2020-11-30] MEDS: Lantus 1000 UNITS/10 ML VIAL SC SCH (20:19)
[2020-12-01] MEDS: niMODipine 30 MG CAP PO SCH ×6 (01:00→21:42)
[2020-12-01] MEDS: Sodium Chloride 0.9% 1,000 ML IV SCH (02:36)
[2020-12-01] MEDS ORDERED: Fentanyl CADD 100 ML ONE (04:13)
[2020-12-01] MEDS: Cefepime 1 GM in Sodium Chloride 0.9% 100 ML IVPB SCH (04:18)
[2020-12-01] MEDS: Fentanyl CADD 100 ML IV SCH (04:22)
[2020-12-01] MEDS: Propofol 1,000 MG/100 ML VIAL IV PRN ×2 (04:58→16:15)
[2020-12-01] MEDS: Sterile Water 10 ML VIAL FS PRN ×2 (04:58→22:10)
[2020-12-01] MEDS: Vecuronium 10 MG VIAL IV PRN ×5 (04:59→22:10)
[2020-12-01 05:17] LABS: Band 4 % (5-11); Hemoglobin 12.1 g/dL (14.0-18.0); Lymphocytes 6 % (21-51); MDiff Complete? YES; Mean Corpuscular HGB CONC 32.7 g/dL (32.0-36.0); Mean Corpuscular Hemoglobin 31.9 pg (27.0-31.0); Mean Corpuscular Volume 97.7 fL (78.0-98.0); Mean Platelet Volume 7.9 fL (7.4-10.4); Monocytes 3 % (0-10); Neutrophil 87 % (42-75); Platelet Count 424 thou/uL (130-400); Platelet Morphology Comment Appears Increased; White Blood Cell (WBC) Count 6.7 thou/uL (4.8-10.8)
[2020-12-01 05:23] LABS: ALT (SGPT) 18 U/L (8-55); AST (SGOT) 14 U/L (5-34); Albumin 2.4 g/dL (3.4-4.8); Alkaline Phosphatase 79 U/L (40-110); Anion Gap 11 mmol/L (10-20); BUN (Urea Nitrogen) 63 mg/dL (8.4-25.7); Bilirubin, Total 0.3 mg/dL (0.2-1.2); Calc. Creatinine Clearance 82 mL/min (70-130); Calcium 7.9 mg/dL (7.8-10.44); Carbon Dioxide 19 mmol/L (23-31); Chloride 120 mmol/L (98-107); Globulin 2.9 g/dL (2.4-3.5); Glucose 490 mg/dL (80-115); Protein, Total 5.3 g/dL (5.8-8.1); Sodium 145 mmol/L (136-145)
[2020-12-01] MEDS: HumaLOG 300 UNITS/3 ML VIAL SC PRN ×4 (06:24→20:30)
[2020-12-01 08:37] LABS: Actual Bicarbonate (HCO3a) 17.1 mEq/L (22-28); Base Excess (BEa) -6.8 mEq/L (-2.0 to +3.0); CO2 Tension 29.8 mmHg (35.0-45.0); Carboxyhemoglobin (COHb) 0.2 gm% (0.0-3.0); Hemoglobin (Hb) 12.9 g/dL (14.0-18.0); O2 Tension (PaO2), arterial 80.4 mmHg (> 80.0); pH, Arterial 7.38 (7.35-7.45)
[2020-12-01 08:39] LABS: Puncture Site RRA
[2020-12-01] MEDS: Pantoprazole 40 MG VIAL IVP SCH (08:49)
[2020-12-01] MEDS: Lisinopril 10 MG TAB PO SCH (08:49)
[2020-12-01] MEDS: Dexamethasone 10 MG in Sodium Chloride 0.9% 50 ML IVPB SCH (08:49)
[2020-12-01] MEDS: Folic Acid 1 MG TAB PO SCH (08:50)
[2020-12-01] MEDS: Enoxaparin Sodium 40 MG/0.4 ML SYRINGE SC SCH ×2 (08:50→20:06)
[2020-12-01] MEDS: Magnesium Oxide 400 MG TAB PO SCH (08:50)
[2020-12-01] MEDS: Multivitamin W/ Minerals 1 TAB PO SCH (08:50)
[2020-12-01] MEDS: Thiamine 100 MG TAB PO SCH (08:50)
[2020-12-01] MEDS: Lantus 1000 UNITS/10 ML VIAL SC SCH ×2 (09:09→20:07)
[2020-12-01 11:18] LABS: Vancomycin, Trough 15.2 ug/mL
[2020-12-01] MEDS ORDERED: Sterile Water 10 ML ONE (20:05)
[2020-12-02] MEDS: Sterile Water 10 ML VIAL FS PRN ×2 (00:22→04:49)
[2020-12-02] MEDS: Vecuronium 10 MG VIAL IV PRN ×4 (00:22→18:20)
[2020-12-02] MEDS: HumaLOG 300 UNITS/3 ML VIAL SC PRN ×6 (01:10→20:35)
[2020-12-02] MEDS: niMODipine 30 MG CAP PO SCH ×6 (01:56→20:07)
[2020-12-02] MEDS: Propofol 1,000 MG/100 ML VIAL IV PRN ×2 (04:49→13:12)
[2020-12-02 06:15] LABS: Band 6 % (5-11); Lymphocytes 7 % (21-51); MDiff Complete? YES; Mean Corpuscular HGB CONC 31.6 g/dL (32.0-36.0); Mean Corpuscular Hemoglobin 31.1 pg (27.0-31.0); Mean Corpuscular Volume 98.6 fL (78.0-98.0); Mean Platelet Volume 7.9 fL (7.4-10.4); Monocytes 10 % (0-10); Neutrophil 77 % (42-75); Platelet Count 441 thou/uL (130-400); Platelet Morphology Comment Appears Increased; RBC Distribution Width 13.2 % (11.5-14.5); Red Blood Cell (RBC) Count 4.17 mill/uL (4.70-6.10); White Blood Cell (WBC) Count 6.2 thou/uL (4.8-10.8)
[2020-12-02] MEDS ORDERED: Fentanyl CADD 100 ML ONE ×2 (06:19→23:43)
[2020-12-02] MEDS: Fentanyl CADD 100 ML IV SCH ×2 (06:25→23:46)
[2020-12-02 06:30] LABS: ALT (SGPT) 17 U/L (8-55); AST (SGOT) 17 U/L (5-34); Albumin 2.5 g/dL (3.4-4.8); Alkaline Phosphatase 75 U/L (40-110); Anion Gap 12 mmol/L (10-20); BUN (Urea Nitrogen) 68 mg/dL (8.4-25.7); Bilirubin, Total 0.4 mg/dL (0.2-1.2); Calc. Creatinine Clearance 110 mL/min (70-130); Calcium 8.6 mg/dL (7.8-10.44); Carbon Dioxide 22 mmol/L (23-31); Chloride 122 mmol/L (98-107); Globulin 3.2 g/dL (2.4-3.5); Glucose 226 mg/dL (80-115); Potassium 4.6 mmol/L (3.5-5.1); Protein, Total 5.7 g/dL (5.8-8.1); Sodium 151 mmol/L (136-145)
[2020-12-02] MEDS: Dexamethasone 10 MG in Sodium Chloride 0.9% 50 ML IVPB SCH (08:21)
[2020-12-02] MEDS: Lisinopril 10 MG TAB PO SCH (08:21)
[2020-12-02] MEDS: Thiamine 100 MG TAB PO SCH (08:22)
[2020-12-02] MEDS: Magnesium Oxide 400 MG TAB PO SCH (08:22)
[2020-12-02] MEDS: Pantoprazole 40 MG VIAL IVP SCH (08:22)
[2020-12-02] MEDS: Folic Acid 1 MG TAB PO SCH (08:22)
[2020-12-02] MEDS: Enoxaparin Sodium 40 MG/0.4 ML SYRINGE SC SCH ×2 (08:22→20:12)
[2020-12-02] MEDS: Multivitamin W/ Minerals 1 TAB PO SCH (08:23)
[2020-12-02] MEDS: Lantus 1000 UNITS/10 ML VIAL SC SCH ×2 (08:23→20:13)
[2020-12-02] MEDS: Lorazepam 2 MG/ML VIAL SLOW IVP PRN ×4 (08:24→22:03)
[2020-12-02 09:18] LABS: Actual Bicarbonate (HCO3a) 21.9 mEq/L (22-28); Base Excess (BEa) -2.5 mEq/L (-2.0 to +3.0); Calcium, Ionized (arterial) 1.22 mmol/L (1.12-1.30); Carboxyhemoglobin (COHb) 0.3 gm% (0.0-3.0); Hemoglobin (Hb) 13.6 g/dL (14.0-18.0); Potassium - ABG Lab 4.33 mmol/L (3.70-5.30); pH, Arterial 7.39 (7.35-7.45)
[2020-12-02 09:22] LABS: O2 Tension (PaO2), arterial 57.4 mmHg (> 80.0); Puncture Site RRA
[2020-12-03] MEDS: niMODipine 30 MG CAP PO SCH ×6 (02:29→20:35)
[2020-12-03 04:17] LABS: Lactic Acid 1.7 mmol/L (0.5-2.2)
[2020-12-03 04:23] LABS: ALT (SGPT) 16 U/L (8-55); AST (SGOT) 24 U/L (5-34); Albumin 2.2 g/dL (3.4-4.8); Alkaline Phosphatase 62 U/L (40-110); Anion Gap 8 mmol/L (10-20); BUN (Urea Nitrogen) 59 mg/dL (8.4-25.7); Bilirubin, Total 0.3 mg/dL (0.2-1.2); Calc. Creatinine Clearance 125 mL/min (70-130); Calcium 8.1 mg/dL (7.8-10.44); Carbon Dioxide 25 mmol/L (23-31); Chloride 120 mmol/L (98-107); Globulin 2.8 g/dL (2.4-3.5); Glucose 177 mg/dL (80-115); Potassium 4.7 mmol/L (3.5-5.1); Sodium 148 mmol/L (136-145)
[2020-12-03 04:34] LABS: Band 2 % (5-11); Hemoglobin 12.7 g/dL (14.0-18.0); Hypochromia SLIGHT = 6-15 cells (100X) (0-5/hpf); Lymphocytes 4 % (21-51); MDiff Complete? YES; Mean Corpuscular HGB CONC 32.9 g/dL (32.0-36.0); Mean Corpuscular Hemoglobin 32.9 pg (27.0-31.0); Metamyelocyte 1 % (0-0); Monocytes 7 % (0-10); Neutrophil 86 % (42-75); Platelet Count 380 thou/uL (130-400); Platelet Morphology Comment Appears Adequate; RBC Distribution Width 13.4 % (11.5-14.5); Red Blood Cell (RBC) Count 3.87 mill/uL (4.70-6.10); White Blood Cell (WBC) Count 6.4 thou/uL (4.8-10.8)
[2020-12-03] MEDS: Thiamine 100 MG TAB PO SCH (07:49)
[2020-12-03] MEDS: Multivitamin W/ Minerals 1 TAB PO SCH (08:04)
[2020-12-03] MEDS: Magnesium Oxide 400 MG TAB PO SCH (08:04)
[2020-12-03] MEDS: Folic Acid 1 MG TAB PO SCH (08:04)
[2020-12-03] MEDS: Pantoprazole 40 MG VIAL IVP SCH (08:05)
[2020-12-03] MEDS: Enoxaparin Sodium 40 MG/0.4 ML SYRINGE SC SCH ×2 (08:05→20:34)
[2020-12-03] MEDS: Dexamethasone 10 MG in Sodium Chloride 0.9% 50 ML IVPB SCH (08:06)
[2020-12-03] MEDS: Lantus 1000 UNITS/10 ML VIAL SC SCH ×2 (08:07→20:36)
[2020-12-03] MEDS: Lisinopril 10 MG TAB PO SCH (08:30)
[2020-12-03] MEDS: HumaLOG 300 UNITS/3 ML VIAL SC PRN ×3 (13:20→17:57)
[2020-12-03] MEDS ORDERED: Fentanyl CADD 100 ML ONE (20:28)
[2020-12-03] MEDS: Fentanyl CADD 100 ML IV SCH (20:34)
[2020-12-04] MEDS: HumaLOG 300 UNITS/3 ML VIAL SC PRN ×4 (00:20→17:15)
[2020-12-04] MEDS: niMODipine 30 MG CAP PO SCH ×6 (00:23→21:26)
[2020-12-04 04:35] LABS: #Lymphocytes 0.5 thou/uL (1.20-3.40); #Monocytes 0.3 thou/uL (0.11-0.59); #Neutrophils 5.5 thou/uL (1.40-6.50); %Eosinophils 0.3 % (0.0-10.0); %Lymphocytes 7.5 % (21.0-51.0); %Monocytes 5.4 % (0.0-10.0); %Neutrophils 86.8 % (42.0-75.0); Hemoglobin 13.4 g/dL (14.0-18.0); Mean Corpuscular HGB CONC 31.3 g/dL (32.0-36.0); Mean Corpuscular Hemoglobin 31.2 pg (27.0-31.0); Mean Corpuscular Volume 99.7 fL (78.0-98.0); Mean Platelet Volume 8.1 fL (7.4-10.4); Platelet Count 390 thou/uL (130-400); RBC Distribution Width 13.4 % (11.5-14.5); White Blood Cell (WBC) Count 6.3 thou/uL (4.8-10.8)
[2020-12-04 04:41] LABS: Lactic Acid 1.7 mmol/L (0.5-2.2)
[2020-12-04 04:53] LABS: ALT (SGPT) 14 U/L (8-55); AST (SGOT) 28 U/L (5-34); Albumin 2.5 g/dL (3.4-4.8); Alkaline Phosphatase 68 U/L (40-110); Anion Gap 8 mmol/L (10-20); BUN (Urea Nitrogen) 46 mg/dL (8.4-25.7); Bilirubin, Total 0.5 mg/dL (0.2-1.2); Calc. Creatinine Clearance 139 mL/min (70-130); Calcium 8.4 mg/dL (7.8-10.44); Carbon Dioxide 27 mmol/L (23-31); Chloride 118 mmol/L (98-107); Globulin 2.9 g/dL (2.4-3.5); Glucose 174 mg/dL (80-115); Potassium 4.8 mmol/L (3.5-5.1); Protein, Total 5.4 g/dL (5.8-8.1); Sodium 148 mmol/L (136-145)
[2020-12-04] MEDS: Dexamethasone 10 MG in Sodium Chloride 0.9% 50 ML IVPB SCH (08:38)
[2020-12-04] MEDS: Magnesium Oxide 400 MG TAB PO SCH (08:39)
[2020-12-04] MEDS: Enoxaparin Sodium 40 MG/0.4 ML SYRINGE SC SCH ×2 (08:39→20:45)
[2020-12-04] MEDS: Multivitamin W/ Minerals 1 TAB PO SCH (08:39)
[2020-12-04] MEDS: Folic Acid 1 MG TAB PO SCH (08:39)
[2020-12-04] MEDS: Pantoprazole 40 MG VIAL IVP SCH (08:39)
[2020-12-04] MEDS: Thiamine 100 MG TAB PO SCH (08:39)
[2020-12-04] MEDS: Lantus 1000 UNITS/10 ML VIAL SC SCH ×2 (08:40→21:26)
[2020-12-04] MEDS ORDERED: Piperacillin/Tazobactam 3.375 GM in Sodium Chloride 0.9% 100 ML IVPB SCH ×2 (09:45→10:00)
[2020-12-04] MEDS: Vancomycin 1.5 GRAM/300 ML BAG 1.5 GM in Premix Bag 1 BAG IVPB SCH ×2 (13:55→23:34)
[2020-12-04] MEDS: Piperacillin/Tazobactam 3.375 GM in Sodium Chloride 0.9% 100 ML IVPB SCH (20:44)
[2020-12-05] MEDS: niMODipine 30 MG CAP PO SCH ×5 (03:13→17:30)
[2020-12-05] MEDS: Piperacillin/Tazobactam 3.375 GM in Sodium Chloride 0.9% 100 ML IVPB SCH ×2 (04:22→12:30)
[2020-12-05] MEDS: Enoxaparin Sodium 40 MG/0.4 ML SYRINGE SC SCH ×2 (07:40→20:55)
[2020-12-05] MEDS: Pantoprazole 40 MG VIAL IVP SCH (07:40)
[2020-12-05] MEDS: Lantus 1000 UNITS/10 ML VIAL SC SCH ×2 (07:41→20:56)
[2020-12-05] MEDS: Multivitamin W/ Minerals 1 TAB PO SCH ×2 (07:42→08:29)
[2020-12-05] MEDS: Magnesium Oxide 400 MG TAB PO SCH ×2 (07:42→08:28)
[2020-12-05] MEDS: Folic Acid 1 MG TAB PO SCH ×2 (07:42→08:28)
[2020-12-05] MEDS: Dexamethasone 10 MG in Sodium Chloride 0.9% 50 ML IVPB SCH (07:42)
[2020-12-05] MEDS: Thiamine 100 MG TAB PO SCH (07:42)
[2020-12-05] MEDS: HumaLOG 300 UNITS/3 ML VIAL SC PRN ×2 (11:45→17:20)
[2020-12-05] MEDS: Vancomycin 1.5 GRAM/300 ML BAG 1.5 GM in Premix Bag 1 BAG IVPB SCH (12:43)
[2020-12-05 23:14] LABS: Vancomycin, Trough 17.2 ug/mL
[2020-12-06] MEDS: Vancomycin 1.5 GRAM/300 ML BAG 1.5 GM in Premix Bag 1 BAG IVPB SCH ×2 (00:15→13:20)
[2020-12-06] MEDS: niMODipine 30 MG CAP PO SCH ×7 (00:15→23:18)
[2020-12-06 08:26] LABS: #Basophils 0.1 thou/uL (0.0-0.2); #Lymphocytes 0.5 thou/uL (1.20-3.40); #Monocytes 0.6 thou/uL (0.11-0.59); #Neutrophils 9.4 thou/uL (1.40-6.50); %Basophils 0.6 % (0.0-1.0); %Eosinophils 0.2 % (0.0-10.0); %Lymphocytes 4.7 % (21.0-51.0); %Monocytes 5.3 % (0.0-10.0); %Neutrophils 89.2 % (42.0-75.0); Hemoglobin 13.7 g/dL (14.0-18.0); Mean Corpuscular HGB CONC 33.1 g/dL (32.0-36.0); Mean Corpuscular Hemoglobin 32.3 pg (27.0-31.0); Mean Corpuscular Volume 97.7 fL (78.0-98.0); Mean Platelet Volume 8.1 fL (7.4-10.4); Platelet Count 412 thou/uL (130-400); RBC Distribution Width 13.1 % (11.5-14.5); Red Blood Cell (RBC) Count 4.24 mill/uL (4.70-6.10); White Blood Cell (WBC) Count 10.5 thou/uL (4.8-10.8)
[2020-12-06 08:41] LABS: Anion Gap 6 mmol/L (10-20); BUN (Urea Nitrogen) 28 mg/dL (8.4-25.7); Calc. Creatinine Clearance 158 mL/min (70-130); Calcium 8.4 mg/dL (7.8-10.44); Carbon Dioxide 29 mmol/L (23-31); Chloride 108 mmol/L (98-107); Glucose 101 mg/dL (80-115); Potassium 4.3 mmol/L (3.5-5.1); Sodium 139 mmol/L (136-145)
[2020-12-06] MEDS: Enoxaparin Sodium 40 MG/0.4 ML SYRINGE SC SCH ×2 (08:55→19:59)
[2020-12-06] MEDS: Multivitamin W/ Minerals 1 TAB PO SCH (08:56)
[2020-12-06] MEDS: Magnesium Oxide 400 MG TAB PO SCH (08:56)
[2020-12-06] MEDS: Folic Acid 1 MG TAB PO SCH (08:56)
[2020-12-06] MEDS: Pantoprazole 40 MG VIAL IVP SCH (08:57)
[2020-12-06] MEDS: Thiamine 100 MG TAB PO SCH (08:57)
[2020-12-06] MEDS: Lantus 1000 UNITS/10 ML VIAL SC SCH ×2 (08:58→20:00)
[2020-12-06] MEDS: Dexamethasone 10 MG in Sodium Chloride 0.9% 50 ML IVPB SCH (13:19)
[2020-12-07] MEDS: Vancomycin 1.5 GRAM/300 ML BAG 1.5 GM in Premix Bag 1 BAG IVPB SCH ×2 (03:02→12:06)
[2020-12-07] MEDS: niMODipine 30 MG CAP PO SCH ×6 (03:02→20:28)
[2020-12-07 04:05] LABS: #Lymphocytes 0.5 thou/uL (1.20-3.40); #Monocytes 0.5 thou/uL (0.11-0.59); #Neutrophils 7.6 thou/uL (1.40-6.50); %Basophils 0.1 % (0.0-1.0); %Eosinophils 0.1 % (0.0-10.0); %Lymphocytes 5.9 % (21.0-51.0); %Monocytes 5.5 % (0.0-10.0); %Neutrophils 88.5 % (42.0-75.0); Hemoglobin 13.3 g/dL (14.0-18.0); Mean Corpuscular HGB CONC 33.5 g/dL (32.0-36.0); Mean Corpuscular Hemoglobin 32.1 pg (27.0-31.0); Mean Corpuscular Volume 95.8 fL (78.0-98.0); Mean Platelet Volume 8.5 fL (7.4-10.4); Platelet Count 345 thou/uL (130-400); RBC Distribution Width 12.9 % (11.5-14.5); Red Blood Cell (RBC) Count 4.13 mill/uL (4.70-6.10); White Blood Cell (WBC) Count 8.6 thou/uL (4.8-10.8)
[2020-12-07 05:12] LABS: Anion Gap 9 mmol/L (10-20); BUN (Urea Nitrogen) 22 mg/dL (8.4-25.7); Calc. Creatinine Clearance 181 mL/min (70-130); Calcium 8.4 mg/dL (7.8-10.44); Carbon Dioxide 24 mmol/L (23-31); Chloride 108 mmol/L (98-107); Glucose 91 mg/dL (80-115); Potassium 3.8 mmol/L (3.5-5.1); Sodium 137 mmol/L (136-145)
[2020-12-07] MEDS: Dexamethasone 4 mg/ml Vial SLOW IVP SCH (09:05)
[2020-12-07] MEDS: Thiamine 100 MG TAB PO SCH (09:05)
[2020-12-07] MEDS: Multivitamin W/ Minerals 1 TAB PO SCH (09:05)
[2020-12-07] MEDS: Lantus 1000 UNITS/10 ML VIAL SC SCH (09:06)
[2020-12-07] MEDS: Enoxaparin Sodium 40 MG/0.4 ML SYRINGE SC SCH ×2 (09:06→20:28)
[2020-12-07] MEDS: Pantoprazole 40 MG VIAL IVP SCH (09:06)
[2020-12-07] MEDS: Magnesium Oxide 400 MG TAB PO SCH (09:06)
[2020-12-07] MEDS: Folic Acid 1 MG TAB PO SCH (09:06)
[2020-12-07 11:06] LABS: Vancomycin, Trough 23.4 ug/mL
[2020-12-07] MEDS ORDERED: HYDROcodone/Acetaminophen 5/325 mg Tablet PO SCH (12:02)
[2020-12-07] MEDS ORDERED: Lantus 1000 UNITS/10 ML VIAL SC SCH (21:00)
[2020-12-08] MEDS: Vancomycin 1.5 GRAM/300 ML BAG 1.5 GM in Premix Bag 1 BAG IVPB SCH ×2 (01:16→12:26)
[2020-12-08] MEDS: niMODipine 30 MG CAP PO SCH ×5 (01:17→15:16)
[2020-12-08] MEDS: HYDROcodone/Acetaminophen 5/325 mg Tablet PO PRN ×3 (01:26→15:15)
[2020-12-08 04:51] LABS: #Lymphocytes 0.6 thou/uL (1.20-3.40); #Monocytes 0.7 thou/uL (0.11-0.59); #Neutrophils 8.7 thou/uL (1.40-6.50); %Basophils 0.4 % (0.0-1.0); %Eosinophils 0.3 % (0.0-10.0); %Lymphocytes 5.6 % (21.0-51.0); %Neutrophils 86.7 % (42.0-75.0); Mean Corpuscular HGB CONC 33.4 g/dL (32.0-36.0); Mean Corpuscular Hemoglobin 32.1 pg (27.0-31.0); Mean Corpuscular Volume 95.8 fL (78.0-98.0); Mean Platelet Volume 8.4 fL (7.4-10.4); Platelet Count 340 thou/uL (130-400); RBC Distribution Width 12.8 % (11.5-14.5); Red Blood Cell (RBC) Count 4.04 mill/uL (4.70-6.10); White Blood Cell (WBC) Count 10.1 thou/uL (4.8-10.8)
[2020-12-08 05:14] LABS: Anion Gap 8 mmol/L (10-20); BUN (Urea Nitrogen) 17 mg/dL (8.4-25.7); Calc. Creatinine Clearance 179 mL/min (70-130); Calcium 7.9 mg/dL (7.8-10.44); Carbon Dioxide 25 mmol/L (23-31); Chloride 108 mmol/L (98-107); Glucose 75 mg/dL (80-115); Potassium 3.8 mmol/L (3.5-5.1); Sodium 137 mmol/L (136-145)
[2020-12-08] MEDS: Thiamine 100 MG TAB PO SCH (09:34)
[2020-12-08] MEDS: Magnesium Oxide 400 MG TAB PO SCH (09:34)
[2020-12-08] MEDS: Folic Acid 1 MG TAB PO SCH (09:34)
[2020-12-08] MEDS: Pantoprazole 40 MG VIAL IVP SCH (09:35)
[2020-12-08] MEDS: Dexamethasone 4 mg/ml Vial SLOW IVP SCH (09:35)
[2020-12-08] MEDS: Multivitamin W/ Minerals 1 TAB PO SCH (09:35)
[2020-12-08] MEDS: Enoxaparin Sodium 40 MG/0.4 ML SYRINGE SC SCH ×2 (09:35→20:21)
[2020-12-08 11:53] LABS: Vancomycin, Trough 19.8 ug/mL
[2020-12-08] MEDS ORDERED: Furosemide 20 MG/2 ML VIAL SLOW IVP SCH (16:30)
[2020-12-08] MEDS: ALPRAZolam 0.25 MG TAB PO PRN (20:22)
[2020-12-09] MEDS: Vancomycin 1.5 GRAM/300 ML BAG 1.5 GM in Premix Bag 1 BAG IVPB SCH ×2 (02:39→13:05)
[2020-12-09 04:22] LABS: #Lymphocytes 0.7 thou/uL (1.20-3.40); #Monocytes 0.7 thou/uL (0.11-0.59); #Neutrophils 7.7 thou/uL (1.40-6.50); %Eosinophils 0.1 % (0.0-10.0); %Lymphocytes 7.6 % (21.0-51.0); %Monocytes 7.8 % (0.0-10.0); %Neutrophils 84.4 % (42.0-75.0); Hemoglobin 13.6 g/dL (14.0-18.0); Mean Corpuscular HGB CONC 33.1 g/dL (32.0-36.0); Mean Corpuscular Volume 96.6 fL (78.0-98.0); Mean Platelet Volume 8.5 fL (7.4-10.4); Platelet Count 318 thou/uL (130-400); Red Blood Cell (RBC) Count 4.23 mill/uL (4.70-6.10); White Blood Cell (WBC) Count 9.1 thou/uL (4.8-10.8)
[2020-12-09 04:43] LABS: Anion Gap 10 mmol/L (10-20); BUN (Urea Nitrogen) 15 mg/dL (8.4-25.7); Calc. Creatinine Clearance 204 mL/min (70-130); Calcium 7.9 mg/dL (7.8-10.44); Carbon Dioxide 23 mmol/L (23-31); Chloride 108 mmol/L (98-107); Glucose 89 mg/dL (80-115); Sodium 137 mmol/L (136-145)
[2020-12-09] MEDS: Enoxaparin Sodium 40 MG/0.4 ML SYRINGE SC SCH ×2 (08:57→20:17)
[2020-12-09] MEDS: Magnesium Oxide 400 MG TAB PO SCH (08:57)
[2020-12-09] MEDS: Pantoprazole 40 MG VIAL IVP SCH (08:57)
[2020-12-09] MEDS: Dexamethasone 4 mg/ml Vial SLOW IVP SCH (08:57)
[2020-12-09] MEDS: Folic Acid 1 MG TAB PO SCH (08:57)
[2020-12-09] MEDS: Thiamine 100 MG TAB PO SCH (08:57)
[2020-12-09] MEDS: Multivitamin W/ Minerals 1 TAB PO SCH (08:57)
[2020-12-09] MEDS: HYDROcodone/Acetaminophen 5/325 mg Tablet PO PRN ×2 (09:49→20:17)
[2020-12-09] MEDS ORDERED: Furosemide 20 MG/2 ML VIAL SLOW IVP SCH (11:30)
[2020-12-09] MEDS: HumaLOG 300 UNITS/3 ML VIAL SC PRN (17:12)
[2020-12-10] MEDS: Vancomycin 1.5 GRAM/300 ML BAG 1.5 GM in Premix Bag 1 BAG IVPB SCH (00:38)
[2020-12-10] MEDS: HYDROcodone/Acetaminophen 5/325 mg Tablet PO PRN (03:13)
[2020-12-10 04:58] LABS: #Lymphocytes 0.9 thou/uL (1.20-3.40); #Monocytes 0.8 thou/uL (0.11-0.59); #Neutrophils 9.6 thou/uL (1.40-6.50); %Eosinophils 0.3 % (0.0-10.0); %Monocytes 6.8 % (0.0-10.0); Hemoglobin 13.1 g/dL (14.0-18.0); Mean Corpuscular HGB CONC 33.5 g/dL (32.0-36.0); Mean Corpuscular Hemoglobin 31.9 pg (27.0-31.0); Mean Corpuscular Volume 95.5 fL (78.0-98.0); Mean Platelet Volume 8.3 fL (7.4-10.4); Platelet Count 366 thou/uL (130-400); Red Blood Cell (RBC) Count 4.12 mill/uL (4.70-6.10); White Blood Cell (WBC) Count 11.3 thou/uL (4.8-10.8)
[2020-12-10 05:19] LABS: Anion Gap 7 mmol/L (10-20); BUN (Urea Nitrogen) 14 mg/dL (8.4-25.7); Calc. Creatinine Clearance 174 mL/min (70-130); Carbon Dioxide 26 mmol/L (23-31); Chloride 104 mmol/L (98-107); Glucose 108 mg/dL (80-115); Potassium 3.3 mmol/L (3.5-5.1); Sodium 134 mmol/L (136-145)
[2020-12-10] MEDS: Magnesium Oxide 400 MG TAB PO SCH (08:00)
[2020-12-10] MEDS: Dexamethasone 4 mg/ml Vial SLOW IVP SCH (08:00)
[2020-12-10] MEDS: Pantoprazole 40 MG VIAL IVP SCH (08:00)
[2020-12-10] MEDS: Thiamine 100 MG TAB PO SCH (08:00)
[2020-12-10] MEDS: Multivitamin W/ Minerals 1 TAB PO SCH (08:00)
[2020-12-10] MEDS: Folic Acid 1 MG TAB PO SCH (08:00)
[2020-12-10] MEDS: Enoxaparin Sodium 40 MG/0.4 ML SYRINGE SC SCH ×2 (08:00→21:53)
[2020-12-10] MEDS ORDERED: Potassium Chloride 20 MEQ TAB PO SCH (08:15)
[2020-12-10] MEDS: Senokot S 8.6-50 MG TAB PO SCH ×2 (10:22→21:53)
[2020-12-10] MEDS ORDERED: Ondansetron PF 4 MG/2 ML Vial IVP PRN (11:14)
[2020-12-10] MEDS: ALPRAZolam 0.25 MG TAB PO PRN (21:53)
[2020-12-10] MEDS: Melatonin 3 MG TAB PO SCH (21:53)
[2020-12-11 03:42] LABS: #Monocytes 0.9 thou/uL (0.11-0.59); #Neutrophils 8.4 thou/uL (1.40-6.50); %Eosinophils 0.4 % (0.0-10.0); %Lymphocytes 9.1 % (21.0-51.0); %Neutrophils 81.4 % (42.0-75.0); Mean Corpuscular HGB CONC 33.7 g/dL (32.0-36.0); Mean Corpuscular Hemoglobin 32.3 pg (27.0-31.0); Mean Corpuscular Volume 95.9 fL (78.0-98.0); Mean Platelet Volume 8.4 fL (7.4-10.4); Platelet Count 368 thou/uL (130-400); RBC Distribution Width 12.9 % (11.5-14.5); Red Blood Cell (RBC) Count 4.01 mill/uL (4.70-6.10); White Blood Cell (WBC) Count 10.4 thou/uL (4.8-10.8)
[2020-12-11 04:12] LABS: Anion Gap 10 mmol/L (10-20); BUN (Urea Nitrogen) 13 mg/dL (8.4-25.7); CRP (Inflammatory) 4.43 mg/dL (= or < 0.5); Calc. Creatinine Clearance 186 mL/min (70-130); Calcium 8.2 mg/dL (7.8-10.44); Carbon Dioxide 24 mmol/L (23-31); Chloride 106 mmol/L (98-107); Glucose 120 mg/dL (80-115); Sodium 136 mmol/L (136-145)
[2020-12-11] MEDS: Enoxaparin Sodium 40 MG/0.4 ML SYRINGE SC SCH ×2 (10:17→21:27)
[2020-12-11] MEDS: Multivitamin W/ Minerals 1 TAB PO SCH (10:17)
[2020-12-11] MEDS: Pantoprazole 40 MG VIAL IVP SCH (10:17)
[2020-12-11] MEDS: Senokot S 8.6-50 MG TAB PO SCH ×2 (10:17→21:28)
[2020-12-11] MEDS: Polyethylene Glycol 3350 17 GM Packet PO SCH (10:18)
[2020-12-11] MEDS: Magnesium Oxide 400 MG TAB PO SCH (10:18)
[2020-12-11] MEDS: Folic Acid 1 MG TAB PO SCH (10:18)
[2020-12-11] MEDS: Thiamine 100 MG TAB PO SCH (10:18)
[2020-12-11] MEDS: Dexamethasone 4 mg/ml Vial SLOW IVP SCH (10:18)
[2020-12-11] MEDS: HumaLOG 300 UNITS/3 ML VIAL SC PRN (18:47)
[2020-12-11] MEDS: Melatonin 3 MG TAB PO SCH (21:28)
[2020-12-11] MEDS: Gabapentin 300 MG CAP PO SCH (21:28)
[2020-12-12] MEDS: HumaLOG 300 UNITS/3 ML VIAL SC PRN ×3 (06:34→20:04)
[2020-12-12] MEDS: Enoxaparin Sodium 40 MG/0.4 ML SYRINGE SC SCH ×2 (10:07→19:41)
[2020-12-12] MEDS: Polyethylene Glycol 3350 17 GM Packet PO SCH (10:09)
[2020-12-12] MEDS: Pantoprazole 40 MG VIAL IVP SCH (10:09)
[2020-12-12] MEDS: Dexamethasone 4 mg/ml Vial SLOW IVP SCH (10:09)
[2020-12-12] MEDS: Senokot S 8.6-50 MG TAB PO SCH ×3 (10:11→19:41)
[2020-12-12] MEDS: Thiamine 100 MG TAB PO SCH (10:12)
[2020-12-12] MEDS: Folic Acid 1 MG TAB PO SCH (10:12)
[2020-12-12] MEDS: Gabapentin 300 MG CAP PO SCH ×2 (10:12→19:40)
[2020-12-12] MEDS: Multivitamin W/ Minerals 1 TAB PO SCH (10:12)
[2020-12-12] MEDS: Melatonin 3 MG TAB PO SCH (19:41)
[2020-12-13 04:03] LABS: #Basophils 0.2 thou/uL (0.0-0.2); #Eosinphils 0.1 thou/uL (0.0-0.7); #Lymphocytes 0.6 thou/uL (1.20-3.40); #Monocytes 0.6 thou/uL (0.11-0.59); #Neutrophils 8.6 thou/uL (1.40-6.50); %Basophils 1.8 % (0.0-1.0); %Eosinophils 0.8 % (0.0-10.0); %Monocytes 6.2 % (0.0-10.0); %Neutrophils 85.2 % (42.0-75.0); Hemoglobin 12.4 g/dL (14.0-18.0); Mean Corpuscular HGB CONC 34.5 g/dL (32.0-36.0); Mean Corpuscular Volume 95.5 fL (78.0-98.0); Mean Platelet Volume 8.5 fL (7.4-10.4); Platelet Count 316 thou/uL (130-400); RBC Distribution Width 12.7 % (11.5-14.5); Red Blood Cell (RBC) Count 3.77 mill/uL (4.70-6.10); White Blood Cell (WBC) Count 10.1 thou/uL (4.8-10.8)
[2020-12-13 04:12] LABS: ALT (SGPT) 37 U/L (8-55); AST (SGOT) 25 U/L (5-34); Albumin 2.3 g/dL (3.4-4.8); Alkaline Phosphatase 97 U/L (40-110); Anion Gap 9 mmol/L (10-20); BUN (Urea Nitrogen) 10 mg/dL (8.4-25.7); Bilirubin, Total 0.5 mg/dL (0.2-1.2); CRP (Inflammatory) 3.13 mg/dL (= or < 0.5); Calc. Creatinine Clearance 179 mL/min (70-130); Calcium 7.9 mg/dL (7.8-10.44); Carbon Dioxide 27 mmol/L (23-31); Chloride 104 mmol/L (98-107); Globulin 2.9 g/dL (2.4-3.5); Glucose 153 mg/dL (80-115); Potassium 3.8 mmol/L (3.5-5.1); Protein, Total 5.2 g/dL (5.8-8.1); Sodium 136 mmol/L (136-145)
[2020-12-13] MEDS: Enoxaparin Sodium 40 MG/0.4 ML SYRINGE SC SCH ×2 (09:29→20:46)
[2020-12-13] MEDS: Dexamethasone 4 mg/ml Vial SLOW IVP SCH (09:30)
[2020-12-13] MEDS: Pantoprazole 40 MG VIAL IVP SCH (09:30)
[2020-12-13] MEDS: Thiamine 100 MG TAB PO SCH (09:33)
[2020-12-13] MEDS: Gabapentin 300 MG CAP PO SCH ×2 (09:33→20:47)
[2020-12-13] MEDS: Magnesium Oxide 400 MG TAB PO SCH (09:33)
[2020-12-13] MEDS: Folic Acid 1 MG TAB PO SCH (09:33)
[2020-12-13] MEDS: Multivitamin W/ Minerals 1 TAB PO SCH (09:34)
[2020-12-13] MEDS: Polyethylene Glycol 3350 17 GM Packet PO SCH (09:34)
[2020-12-13] MEDS ORDERED: Milk Of Magnesia 30 ML UDCUP PO PRN (10:52)
[2020-12-13] MEDS: HumaLOG 300 UNITS/3 ML VIAL SC PRN ×3 (11:53→20:55)
[2020-12-13] MEDS: Melatonin 3 MG TAB PO SCH (20:47)
[2020-12-13] MEDS: Senokot S 8.6-50 MG TAB PO SCH (20:47)
[2020-12-13] MEDS: ALPRAZolam 0.25 MG TAB PO PRN (20:47)
[2020-12-14 03:31] LABS: #Eosinphils 0.1 thou/uL (0.0-0.7); #Lymphocytes 0.8 thou/uL (1.20-3.40); #Monocytes 0.6 thou/uL (0.11-0.59); #Neutrophils 8.3 thou/uL (1.40-6.50); %Basophils 0.1 % (0.0-1.0); %Eosinophils 0.8 % (0.0-10.0); %Lymphocytes 8.2 % (21.0-51.0); %Monocytes 5.8 % (0.0-10.0); %Neutrophils 85.2 % (42.0-75.0); Hemoglobin 12.5 g/dL (14.0-18.0); Mean Corpuscular HGB CONC 34.7 g/dL (32.0-36.0); Mean Corpuscular Hemoglobin 33.3 pg (27.0-31.0); Mean Corpuscular Volume 96.1 fL (78.0-98.0); Mean Platelet Volume 7.8 fL (7.4-10.4); Platelet Count 287 thou/uL (130-400); RBC Distribution Width 12.6 % (11.5-14.5); Red Blood Cell (RBC) Count 3.75 mill/uL (4.70-6.10); White Blood Cell (WBC) Count 9.8 thou/uL (4.8-10.8)
[2020-12-14 03:54] LABS: Anion Gap 10 mmol/L (10-20); BUN (Urea Nitrogen) 11 mg/dL (8.4-25.7); Calc. Creatinine Clearance 138 mL/min (70-130); Calcium 8.4 mg/dL (7.8-10.44); Carbon Dioxide 28 mmol/L (23-31); Chloride 103 mmol/L (98-107); Glucose 205 mg/dL (80-115); Potassium 4.2 mmol/L (3.5-5.1); Sodium 137 mmol/L (136-145)
[2020-12-14] MEDS: Lorazepam 2 MG/ML VIAL SLOW IVP PRN (08:22)
[2020-12-14] MEDS: Dexamethasone 4 mg/ml Vial SLOW IVP SCH (09:06)
[2020-12-14] MEDS: Pantoprazole 40 MG VIAL IVP SCH (09:06)
[2020-12-14] MEDS: Senokot S 8.6-50 MG TAB PO SCH ×2 (09:06→21:07)
[2020-12-14] MEDS: Folic Acid 1 MG TAB PO SCH (09:06)
[2020-12-14] MEDS: Magnesium Oxide 400 MG TAB PO SCH (09:06)
[2020-12-14] MEDS: Gabapentin 300 MG CAP PO SCH ×2 (09:06→21:07)
[2020-12-14] MEDS: Enoxaparin Sodium 40 MG/0.4 ML SYRINGE SC SCH ×2 (09:06→21:07)
[2020-12-14] MEDS: Thiamine 100 MG TAB PO SCH (09:06)
[2020-12-14] MEDS: Multivitamin W/ Minerals 1 TAB PO SCH (09:07)
[2020-12-14] MEDS: Polyethylene Glycol 3350 17 GM Packet PO SCH (09:07)
[2020-12-14] MEDS: HumaLOG 300 UNITS/3 ML VIAL SC PRN ×3 (12:26→21:08)
[2020-12-14 17:42] VITALS: BP 102/52
[2020-12-14] MEDS: ALPRAZolam 0.25 MG TAB PO PRN (21:07)
[2020-12-14] MEDS: Melatonin 3 MG TAB PO SCH (21:07)
[2020-12-15] MEDS: Lorazepam 2 MG/ML VIAL SLOW IVP PRN ×3 (03:59→16:03)
[2020-12-15] MEDS ORDERED: Morphine 2 MG/ML VIAL SLOW IVP SCH (04:00)
[2020-12-15 04:10] LABS: #Eosinphils 0.1 thou/uL (0.0-0.7); #Lymphocytes 0.8 thou/uL (1.20-3.40); #Monocytes 0.7 thou/uL (0.11-0.59); #Neutrophils 18.2 thou/uL (1.40-6.50); %Basophils 0.1 % (0.0-1.0); %Eosinophils 0.4 % (0.0-10.0); %Lymphocytes 3.9 % (21.0-51.0); %Monocytes 3.3 % (0.0-10.0); %Neutrophils 92.3 % (42.0-75.0); Hemoglobin 13.3 g/dL (14.0-18.0); Mean Corpuscular HGB CONC 33.9 g/dL (32.0-36.0); Mean Corpuscular Hemoglobin 32.8 pg (27.0-31.0); Mean Corpuscular Volume 96.8 fL (78.0-98.0); Mean Platelet Volume 7.9 fL (7.4-10.4); Platelet Count 312 thou/uL (130-400); RBC Distribution Width 12.9 % (11.5-14.5); Red Blood Cell (RBC) Count 4.05 mill/uL (4.70-6.10); White Blood Cell (WBC) Count 19.7 thou/uL (4.8-10.8)
[2020-12-15 04:29] LABS: ALT (SGPT) 24 U/L (8-55); AST (SGOT) 17 U/L (5-34); Albumin 2.7 g/dL (3.4-4.8); Alkaline Phosphatase 117 U/L (40-110); Anion Gap 13 mmol/L (10-20); BUN (Urea Nitrogen) 12 mg/dL (8.4-25.7); Bilirubin, Total 0.5 mg/dL (0.2-1.2); CRP (Inflammatory) 11.31 mg/dL (= or < 0.5); Calc. Creatinine Clearance 152 mL/min (70-130); Calcium 8.5 mg/dL (7.8-10.44); Carbon Dioxide 26 mmol/L (23-31); Chloride 101 mmol/L (98-107); Globulin 3.4 g/dL (2.4-3.5); Glucose 206 mg/dL (80-115); Potassium 3.6 mmol/L (3.5-5.1); Protein, Total 6.1 g/dL (5.8-8.1); Sodium 136 mmol/L (136-145)
[2020-12-15] MEDS: Dexamethasone 4 mg/ml Vial SLOW IVP SCH (09:34)
[2020-12-15] MEDS: Pantoprazole 40 MG VIAL IVP SCH (09:34)
[2020-12-15] MEDS: Enoxaparin Sodium 40 MG/0.4 ML SYRINGE SC SCH ×2 (09:34→21:36)
[2020-12-15] MEDS: Thiamine 100 MG TAB PO SCH (09:35)
[2020-12-15] MEDS: Multivitamin W/ Minerals 1 TAB PO SCH (09:35)
[2020-12-15] MEDS: Magnesium Oxide 400 MG TAB PO SCH (09:35)
[2020-12-15] MEDS: Polyethylene Glycol 3350 17 GM Packet PO SCH (09:35)
[2020-12-15] MEDS: Folic Acid 1 MG TAB PO SCH (09:35)
[2020-12-15] MEDS: Gabapentin 300 MG CAP PO SCH ×2 (09:35→21:36)
[2020-12-15] MEDS: Senokot S 8.6-50 MG TAB PO SCH ×2 (09:35→21:36)
[2020-12-15] MEDS: HumaLOG 300 UNITS/3 ML VIAL SC PRN (11:42)
[2020-12-15] MEDS: Dexamethasone 10 MG/ML VIAL SLOW IVP SCH (21:36)
[2020-12-15] MEDS: Melatonin 3 MG TAB PO SCH (21:36)
[2020-12-16] MEDS: Lorazepam 2 MG/ML VIAL SLOW IVP PRN ×5 (00:38→23:42)
[2020-12-16] MEDS ORDERED: Morphine 2 MG/ML VIAL SLOW IVP SCH (01:45)
[2020-12-16] MEDS ORDERED: Morphine 4 MG/ML VIAL ONE (03:53)
[2020-12-16 06:43] LABS: #Basophils 0.1 thou/uL (0.0-0.2); #Lymphocytes 0.4 thou/uL (1.20-3.40); #Monocytes 0.6 thou/uL (0.11-0.59); #Neutrophils 13.9 thou/uL (1.40-6.50); %Basophils 0.6 % (0.0-1.0); %Eosinophils 0.2 % (0.0-10.0); %Lymphocytes 2.3 % (21.0-51.0); Hemoglobin 12.9 g/dL (14.0-18.0); Mean Corpuscular HGB CONC 32.4 g/dL (32.0-36.0); Mean Corpuscular Hemoglobin 31.5 pg (27.0-31.0); Mean Corpuscular Volume 97.2 fL (78.0-98.0); Platelet Count 287 thou/uL (130-400); RBC Distribution Width 12.8 % (11.5-14.5)
[2020-12-16 07:04] LABS: Anion Gap 12 mmol/L (10-20); BUN (Urea Nitrogen) 15 mg/dL (8.4-25.7); Calc. Creatinine Clearance 156 mL/min (70-130); Calcium 8.8 mg/dL (7.8-10.44); Carbon Dioxide 25 mmol/L (23-31); Chloride 102 mmol/L (98-107); Glucose 223 mg/dL (80-115); Potassium 4.4 mmol/L (3.5-5.1); Sodium 135 mmol/L (136-145)
[2020-12-16] MEDS: Polyethylene Glycol 3350 17 GM Packet PO SCH (08:59)
[2020-12-16] MEDS: Magnesium Oxide 400 MG TAB PO SCH (08:59)
[2020-12-16] MEDS: Folic Acid 1 MG TAB PO SCH (08:59)
[2020-12-16] MEDS: Multivitamin W/ Minerals 1 TAB PO SCH (08:59)
[2020-12-16] MEDS: Gabapentin 300 MG CAP PO SCH ×2 (08:59→20:10)
[2020-12-16] MEDS: Senokot S 8.6-50 MG TAB PO SCH ×2 (09:00→20:10)
[2020-12-16] MEDS: Thiamine 100 MG TAB PO SCH (09:00)
[2020-12-16] MEDS: Pantoprazole 40 MG VIAL IVP SCH (11:05)
[2020-12-16] MEDS: Enoxaparin Sodium 40 MG/0.4 ML SYRINGE SC SCH ×2 (11:05→20:10)
[2020-12-16] MEDS: Dexamethasone 10 MG/ML VIAL SLOW IVP SCH ×2 (11:06→20:10)
[2020-12-16] MEDS ORDERED: Morphine 2 MG/ML VIAL SLOW IVP PRN (12:04)
[2020-12-16] MEDS: Morphine 2 MG/ML VIAL SLOW IVP PRN ×3 (16:58→23:40)
[2020-12-16] MEDS: Melatonin 3 MG TAB PO SCH (20:10)
[2020-12-17] MEDS: Morphine 2 MG/ML VIAL SLOW IVP PRN ×5 (02:12→19:52)
[2020-12-17] MEDS: Lorazepam 2 MG/ML VIAL SLOW IVP PRN ×5 (04:07→19:52)
[2020-12-17 08:51] VITALS: BMI 33.1
[2020-12-17] MEDS: Enoxaparin Sodium 40 MG/0.4 ML SYRINGE SC SCH (10:39)
[2020-12-17] MEDS: Folic Acid 1 MG TAB PO SCH (10:39)
[2020-12-17] MEDS: Dexamethasone 10 MG/ML VIAL SLOW IVP SCH (10:39)
[2020-12-17] MEDS: Multivitamin W/ Minerals 1 TAB PO SCH (10:40)
[2020-12-17] MEDS: Thiamine 100 MG TAB PO SCH (10:40)
[2020-12-17] MEDS: Pantoprazole 40 MG VIAL IVP SCH (10:40)
[2020-12-17] MEDS: Magnesium Oxide 400 MG TAB PO SCH (10:40)
[2020-12-17] MEDS: Polyethylene Glycol 3350 17 GM Packet PO SCH (10:40)
[2020-12-17] MEDS: Gabapentin 300 MG CAP PO SCH (10:40)
[2020-12-17] MEDS: Senokot S 8.6-50 MG TAB PO SCH (10:40)
[2020-12-17 19:46] VITALS: TEMP 97
== END 2020-12-17 20:14 | disposition expired | DRG 870 ==
LOC: ERS 03:48 → CCU 05:55 → IMCU/EMU 12-07 00:21
PROVIDERS: ADMIT Student in an Organized Health Care Education/Training Program; ATTEND Internal Medicine Geriatric Medicine
PROC: 5A1955Z Respiratory Ventilation, Greater than 96 Consecutive Hours (ICD-10-PCS; principal; 2020-11-29)
PROC: 3E033XZ Introduction of Vasopressor into Peripheral Vein, Percutaneous Approach (ICD-10-PCS; 2020-11-29)
PROC: XW033H5 Introduction of Tocilizumab into Peripheral Vein, Percutaneous Approach, New Technology Group 5 (ICD-10-PCS; 2020-11-29)
PROC: 5A0935A Assistance with Respiratory Ventilation, Less than 24 Consecutive Hours, High Flow/Velocity Cannula (ICD-10-PCS; 2020-11-29)
PROC: 0BH17EZ Insertion of Endotracheal Airway into Trachea, Via Natural or Artificial Opening (ICD-10-PCS; 2020-11-29)
PROC: 8E0ZXY6 Isolation (ICD-10-PCS; 2020-11-29)
PROC: 5A09457 Assistance with Respiratory Ventilation, 24-96 Consecutive Hours, Continuous Positive Airway Pressure (ICD-10-PCS; 2020-12-04)
PROC: 5A0955A Assistance with Respiratory Ventilation, Greater than 96 Consecutive Hours, High Flow/Velocity Cannula (ICD-10-PCS; 2020-12-06)
DX: A41.89 Other specified sepsis (principal); U07.1 COVID-19; J12.82 Pneumonia due to coronavirus disease 2019; J80 Acute respiratory distress syndrome; G93.41 Metabolic encephalopathy; N17.9 Acute kidney failure, unspecified; E87.2 Acidosis; I13.0 Hypertensive heart and chronic kidney disease with heart failure and stage 1 through stage 4 chronic kidney disease, or unspecified chronic kidney disease; E87.1 Hypo-osmolality and hyponatremia; E87.0 Hyperosmolality and hypernatremia; Z68.41 Body mass index [BMI] 40.0-44.9, adult; R65.20 Severe sepsis without septic shock; Z66 Do not resuscitate; Z51.5 Encounter for palliative care; E78.5 Hyperlipidemia, unspecified; E78.00 Pure hypercholesterolemia, unspecified; I50.9 Heart failure, unspecified; E86.1 Hypovolemia; E66.9 Obesity, unspecified; R45.1 Restlessness and agitation; N18.9 Chronic kidney disease, unspecified; E11.22 Type 2 diabetes mellitus with diabetic chronic kidney disease; I95.9 Hypotension, unspecified; E11.649 Type 2 diabetes mellitus with hypoglycemia without coma; F41.0 Panic disorder [episodic paroxysmal anxiety]; K59.00 Constipation, unspecified; Z79.84 Long term (current) use of oral hypoglycemic drugs; Z88.5 Allergy status to narcotic agent; Z88.2 Allergy status to sulfonamides; Z85.810 Personal history of malignant neoplasm of tongue; Z92.3 Personal history of irradiation; Z79.899 Other long term (current) drug therapy; Z88.0 Allergy status to penicillin; Z87.820 Personal history of traumatic brain injury; Z91.19 Patient's noncompliance with other medical treatment and regimen; Z78.1 Physical restraint status
CPT/HCPCS: 0240U; 36415; 36416; 36600; 71045; 71275; 80048; 80053; 80202; 82728; 82805; 83605; 83880; 84443; 84484; 85007; 85025; 85027; 85379; 86140; 87040; 87070; 87205; 93005; 94002; 94003; 94660; 96365; 96375; C9113; J0692; J1100; J1650; J1815; J1940; J2060; J2270; J2405; J2543; J2704; J3010; J3262; J3370; J3411; J3475; J3490; Q9967